=== PATIENT | male | born 1975 | race Caucasian/White ===

== ENCOUNTER 2017-08-26 09:00 | Emergency (ER) | payer OTHER ==
[2017-08-26 09:03] VITALS: BP 138/67; PULSE 78; RESP 18; TEMP 98.2
[2017-08-26] MEDS ORDERED: DIPH,PERTUS(ACELL)TETVAC-LF 0.5 ML VIAL IM ONE (09:05)
--- NOTE | 2017-08-26 09:33 | ED ---
General Adult HPI - General Chief complaint: Wound/Laceration Stated complaint: Head Injury Time Seen by Provider: 08/26/17 09:04 Source: police, RN notes reviewed Mode of arrival: ambulatory - History of Present Illness Initial comments: Patient 42-year-old male who presents emergency room today in the custody of police with a laceration to stop his forehead. He did put his head through a piece of glass causing this laceration. Patient states tetanus is not up-to- date. He denies his glans her symptoms. Patient denies any recent fever, chills , shortness of breath, chest pain, back pain, abdominal pain, nausea or vomiting , numbness or tingling, dysuria or hematuria, constipation or diarrhea, headaches or visual changes, or any other complaints. - Related Data Home Medications Medication Instructions Recorded Confirmed Aspirin 1,950 - 2,275 mg PO Q6H PRN 05/19/16 05/19/16 Multivitamin/Iron/Folic Acid 1 tab PO DAILY 05/19/16 05/19/16 [Centrum Complete Multivit Tab] Previous Rx's Medication Instructions Recorded HYDROcodone/APAP 5-325MG [[place] 5] 1 each PO Q4HR PRN #20 tab 05/19/16 Naproxen [Naprosyn] 500 mg PO Q12HR #24 tab 05/19/16 Sulfamethox-Tmp 800-160Mg [Bactrim 2 each PO Q12HR #40 tab 05/19/16 DS 800-160 mg] Allergies Allergy/AdvReac Type Severity Reaction Status Date / Time iodine Allergy Nausea & Verified 05/19/16 14:02 Vomiting seafood Allergy Unknown Uncoded 05/19/16 14:02 Review of Systems ROS Statement: Those systems with pertinent positive or pertinent negative responses have been documented in the HPI. ROS Other: All systems not noted in ROS Statement are negative. Past Medical History Past Medical History: No Reported History Additional Past Medical History / Comment(s): kidney stones History of Any Multi-Drug Resistant Organisms: MRSA Date of last positivie culture/infection: 05/19/16 MDRO Source:: left leg Past Surgical History: Hernia Repair Additional Past Surgical History / Comment(s): lithotripsy Past Psychological History: No Psychological Hx Reported Smoking Status: Current every day smoker Past Alcohol Use History: None Reported Past Drug Use History: None Reported General Exam - General Exam Comments Initial Comments: General: The patient is awake and alert, in no distress, and does not appear acutely ill. Eye: Pupils are equal, round and reactive to light, extra-ocular movements are intact. No nystagmus. There is normal conjunctiva bilaterally. No signs of icterus. Ears, nose, mouth and throat: There are moist mucous membranes and no oral lesions. Neck: The neck is supple, there is no tenderness or JVD. Neurological: A&O x 3. CN II-XII intact, There are no obvious motor or sensory deficits. Coordination appears grossly intact. Speech is normal. Skin: Patient does have a 1.5 cm linear laceration running horizontally to the forehead. Psychiatric: Cooperative, appropriate mood & affect, normal judgment. Course Vital Signs 08/26/17 09:01 Temperature 98.2 F Pulse Rate 78 Respiratory 18 Rate Blood Pressure 138/67 O2 Sat by Pulse 99 Oximetry Procedures - Procedures Initial comment: 1.5 cm linear laceration to The forehead. The skin was anesthetized with 1% lidocaine. The laceration was then cleansed with and irrigated with normal saline. The wound was inspected, and there was no evidence of injury to deep structures. No foreign body was noted in the wound. A total of 5 skin sutures were placed utilizing 5-0 nylon. Disposition Clinical Impression: Laceration Disposition: HOME SELF-CARE Condition: Good Instructions: Laceration (ED) Additional Instructions: Please return to the emergency room in 5 days to have sutures removed. Please watch for any signs of infection which may include increased pain, swelling, redness, fever or chills. Please return to emergency room for any signs of infection do occur. Please use clean soap and water over the area to prevent scabbing over your stitches. Please return to the emergency room for any other concerns. Referrals: None,Stated [Primary Care Provider] - 1-2 days Time of Disposition: 09:32
== END 2017-08-26 09:38 | disposition home or self-care (01) ==
LOC: EC 09:00
DX: S01.81XA Laceration without foreign body of other part of head, initial encounter (principal); F17.200 Nicotine dependence, unspecified, uncomplicated; Z86.14 Personal history of Methicillin resistant Staphylococcus aureus infection; Z79.899 Other long term (current) drug therapy; Z91.048 Other nonmedicinal substance allergy status; Z91.013 Allergy to seafood; Z23 Encounter for immunization; W25.XXXA Contact with sharp glass, initial encounter
CPT/HCPCS: 12011; 90471; 90715; 99283

== ENCOUNTER 2019-08-13 03:49 | Emergency (ER) | payer OTHER ==
[2019-08-13 03:56] VITALS: BP 120/72; PULSE 75; RESP 16; TEMP 97.4
[2019-08-13] MEDS ORDERED: SULFAMETH-TMP DS STARTER PACK 2 TAB BTL PO STA (04:09)
[2019-08-13] MEDS ORDERED: SULFAMETHOX-TMP 800-160MG 1 EACH TAB PO STA (04:09)
--- NOTE | 2019-08-13 04:10 | ED ---
General Adult HPI - General Chief complaint: ENT Stated complaint: Facial Lump Time Seen by Provider: 08/13/19 04:05 Source: patient, RN notes reviewed, old records reviewed Mode of arrival: ambulatory Limitations: no limitations - History of Present Illness Initial comments: 44-year-old male patient presents ED chief complaint of lump underneath jaw on right side of his mouth that has been causing discomfort for approximately 3 days. Reports that he is to stay methamphetamine user hardened clean for 6 months. Denies any IV drug use ever. It has any other complaints. Denies any pain in any other places. Denies cough congestion, nausea vomiting or diarrhea. Systemic: Pt denies fatigue, fever/chills, rash. Pt denies weakness, night sweats, weight loss. Neuro: Pt denies headache, visual disturbances, syncope or pre-syncope. HEENT: Pt denies ocular discharge or irritation, otalgia, rhinorrhea, pharyngitis . Cardiopulmonary: Pt denies chest pain, SOB, heart palpitations, dyspnea on exertion. Abdominal/GI: Pt denies abdominal pain, n/v/d. : Pt denies dysuria, burning w/ urination, frequency/urgency. Denies new onset urinary or bowel incontinence. MSK: Pt denies myalgia, loss of strength or function in extremities. Neuro: Pt denies new onset weakness, paresthesias. - Related Data Previous Rx's Medication Instructions Recorded Sulfamethox-Tmp 800-160Mg [Bactrim 1 tab PO Q12HR #20 tab 08/13/19 DS 800-160 mg] Allergies Allergy/AdvReac Type Severity Reaction Status Date / Time iodine Allergy Nausea & Verified 08/13/19 03:56 Vomiting seafood Allergy Unknown Uncoded 08/13/19 03:56 Review of Systems ROS Statement: Those systems with pertinent positive or pertinent negative responses have been documented in the HPI. ROS Other: All systems not noted in ROS Statement are negative. Past Medical History Past Medical History: No Reported History Additional Past Medical History / Comment(s): kidney stones History of Any Multi-Drug Resistant Organisms: MRSA Date of last positivie culture/infection: 05/19/16 MDRO Source:: left leg Past Surgical History: Hernia Repair Additional Past Surgical History / Comment(s): lithotripsy Past Psychological History: No Psychological Hx Reported Smoking Status: Current every day smoker Past Alcohol Use History: None Reported Past Drug Use History: Marijuana General Exam - General Exam Comments Initial Comments: Constitutional: NAD, AOX3, Pt has pleasant affect. HEENT: NC/AT, trachea midline, neck supple, tender submandibular right-sided lymphadenopathy noted. No erythema, no skin changes no fluctuance.. Posterior pharynx non erythematous, without exudates. External ears appear normal, without discharge. Mucous membranes moist. Eyes PERRLA, EOM intact. There is no scleral icterus. No pallor noted. Cardiopulmonary: RRR, no murmurs, rubs or gallops, no JVD noted. Lungs CTAB in anterior and posterior blanco. No peripheral edema. Abdominal exam: Abdomen soft and non-distended. Abdomen non-tender to palpation in all 4 quadrants. Bowel sounds active in LLQ. No hepatosplenomegaly. No ecchymosis Neuro: CN II-XII grossly intact. No nuchal rigidity. No raccon eyes, no srivastava sign, no hemotympanum. No cervical spinal tenderness. MSK: No posterior calf tenderness bilaterally, homans sign negative bilaterally. Posterior tibialis and radial pulse +2 bilaterally. Sensation intact in upper and lower extremities. Full active ROM in upper and lower extremities, 5/5 stregnth. Limitations: no limitations Course Vital Signs 08/13/19 03:53 Temperature 97.4 F L Pulse Rate 75 Respiratory 16 Rate Blood Pressure 120/72 O2 Sat by Pulse 99 Oximetry Medical Decision Making - Medical Decision Making 44-year-old male patient presents ED chief complaint of painful lump under her right jaw. Patient vital signs are stable, afebrile. Physical exam displayed tender similar viral lymphadenopathy. Patient be treated for lymphadenitis of Bactrim. Patient urged to follow up with primary care provider for further evaluation and exclusion of possible malignancy. Return to us discussed. Case discussed with Dr. Paige. Disposition Clinical Impression: Lymphadenitis, Lymphadenopathy Disposition: HOME SELF-CARE Condition: Stable Instructions (If sedation given, give patient instructions): Adenitis (ED) Additional Instructions: Take medication as directed. Follow up with primary care provider to rule out possibility of cancer. Return to ER if condition worsens. Prescriptions: Sulfamethox-Tmp 800-160Mg [Bactrim DS 800-160 mg] 1 tab PO Q12HR #20 tab Is patient prescribed a controlled substance at d/c from ED?: No Referrals: None,Stated [Primary Care Provider] - 1-2 days [facility] [NON-STAFF] - 1-2 days
[2019-08-13] MEDS ORDERED: ACETAMINOPHEN TAB 325 MG TAB PO STA (04:13)
== END 2019-08-13 04:23 | disposition home or self-care (01) ==
LOC: EC 03:49
DX: I88.9 Nonspecific lymphadenitis, unspecified (principal); F17.200 Nicotine dependence, unspecified, uncomplicated; Z91.048 Other nonmedicinal substance allergy status; Z91.013 Allergy to seafood
CPT/HCPCS: 99283

== ENCOUNTER 2020-01-04 04:21 | Inpatient (IN) | payer MEDICAID, OTHER ==
[2020-01-04 05:46] LABS: Appearance,Urine Clear (Clear); Bilirubin,Urine Negative (Negative); Blood,Urine Negative (Negative); Color,Urine Yellow; Glucose,Urine (UA) Negative (Negative); Ketones,Urine Negative (Negative); Leukocyte Esterase,Urine Negative (Negative); Nitrite,Urine Negative (Negative); PH, Urine 6.5 (5.0-8.0); Protein,Urine Negative (Negative); Specific Gravity,Urine 1.021 (1.001-1.035); Urobilinogen,Urine <2.0 mg/dL (<2.0)
[2020-01-04] MEDS ORDERED: ZIPRASIDONE 20 MG VIAL IM PRN (05:47)
[2020-01-04] MEDS ORDERED: LORazepam 1 MG TAB PO PRN (05:47)
[2020-01-04] MEDS ORDERED: ACETAMINOPHEN TAB 325 MG TAB PO PRN (05:47)
[2020-01-04] MEDS ORDERED: MAGNESIUM HYDROXIDE 2,400 MG/10 ML CUP PO PRN (05:47)
[2020-01-04 05:57] LABS: Amphetamine Screen,Urine Not Detected (NotDetected); Barbiturate Screen,Urine Not Detected (NotDetected); Benzodiazepines Screen,Urine Not Detected (NotDetected); Cocaine Screen,Urine Not Detected (NotDetected); Methadone Screen, Urine Not Detected (NotDetected); Opiate Screen,Urine Not Detected (NotDetected); Oxycodone Screen, Urine Not Detected (NotDetected); Phencyclidine Screen,Urine Not Detected (NotDetected); Tricyclic Antidepressant,Urine Not Detected (NotDetected); Urn Cannabinoid Scrn Detected (NotDetected)
--- NOTE | 2020-01-04 06:13 | ED ---
Psych HPI - General Chief Complaint: Psychiatric Symptoms Stated Complaint: Suicidal Ideation Time Seen by Provider: 01/04/20 04:23 Source: patient, EMS Mode of arrival: EMS Limitations: no limitations - History of Present Illness Initial Comments: This patient is a 44-year-old man who presents to be evaluated for worsening depression and suicidal ideation. The patient states that he has history of same but believes his symptoms were exacerbated by of a relative. The patient states he has not been on any medication for mood disorder. He does have a counselor through [facility] but has not seen her for over a week. MD Complaint: suicidal ideation, feels depressed Onset/Timin -: week(s) Associated Psychiatric Symptoms: depression, suicidal ideation History of same: Yes Quality: getting worse Improves With: none Worsens With: none Context: significant life stressor Associated Symptoms: denies other symptoms - Related Data Previous Rx's Medication Instructions Recorded Sulfamethox-Tmp 800-160Mg [Bactrim 1 tab PO Q12HR #20 tab 08/13/19 DS 800-160 mg] Allergies Allergy/AdvReac Type Severity Reaction Status Date / Time iodine Allergy Nausea & Verified 08/13/19 03:56 Vomiting seafood Allergy Unknown Uncoded 08/13/19 03:56 Review of Systems ROS Statement: Those systems with pertinent positive or pertinent negative responses have been documented in the HPI. ROS Other: All systems not noted in ROS Statement are negative. Constitutional: Denies: fever, chills Respiratory: Denies: cough, dyspnea Cardiovascular: Denies: chest pain, palpitations, syncope Gastrointestinal: Denies: abdominal pain, vomiting, diarrhea Musculoskeletal: Denies: back pain Skin: Denies: rash Neurological: Denies: headache, weakness Psychiatric: Reports: depression, suicidal thoughts. Denies: auditory hallucinations, visual hallucinations, homicidal thoughts Past Medical History Past Medical History: No Reported History Additional Past Medical History / Comment(s): kidney stones History of Any Multi-Drug Resistant Organisms: MRSA Date of last positivie culture/infection: 05/19/16 MDRO Source:: left leg Past Surgical History: Hernia Repair Additional Past Surgical History / Comment(s): lithotripsy Past Psychological History: No Psychological Hx Reported Smoking Status: Current every day smoker Past Alcohol Use History: None Reported Past Drug Use History: Marijuana General Exam General appearance: alert, in no apparent distress Head exam: Present: atraumatic, normocephalic Eye exam: Present: normal appearance. Absent: scleral icterus, conjunctival injection ENT exam: Present: normal oropharynx Respiratory exam: Present: normal lung sounds bilaterally. Absent: respiratory distress, wheezes, rales, rhonchi, stridor Cardiovascular Exam: Present: regular rate, normal rhythm, normal heart sounds. Absent: systolic murmur, diastolic murmur, rubs, gallop GI/Abdominal exam: Present: soft. Absent: distended, tenderness, guarding, rebound, rigid Neurological exam: Present: alert Psychiatric exam: Present: depressed, suicidal ideation. Absent: agitated, anxious, flat affect, manic, homicidal ideation Skin exam: Present: warm, dry, intact, normal color. Absent: rash Course Vital Signs 01/04/20 01/04/20 04:26 05:55 Temperature 97.9 F 97.9 F Pulse Rate 90 87 Respiratory 18 16 Rate Blood Pressure 125/85 115/56 O2 Sat by Pulse 97 98 Oximetry Medical Decision Making - Lab Data Lab Results 01/04/20 Range/Units 05:00 Urine Color Yellow Urine Appearance Clear (Clear) Urine pH 6.5 (5.0-8.0) Ur Specific [place] 1.021 (1.001-1.035) Urine Protein Negative (Negative) Urine Glucose (UA) Negative (Negative) Urine Ketones Negative (Negative) Urine Blood Negative (Negative) Urine Nitrite Negative (Negative) Urine Bilirubin Negative (Negative) Urine Urobilinogen <2.0 (<2.0) mg/dL Ur Leukocyte Esterase Negative (Negative) Urine Opiates Screen Not Detected (NotDetected) Ur Oxycodone Screen Not Detected (NotDetected) Urine Methadone Screen Not Detected (NotDetected) Ur Propoxyphene Screen Not Detected (NotDetected) Ur Barbiturates Screen Not Detected (NotDetected) U Tricyclic Antidepress Not Detected (NotDetected) Ur Phencyclidine Scrn Not Detected (NotDetected) Ur Amphetamines Screen Not Detected (NotDetected) U Methamphetamines Scrn Not Detected (NotDetected) U Benzodiazepines Scrn Not Detected (NotDetected) Urine Cocaine Screen Not Detected (NotDetected) U Marijuana (THC) Screen Detected H (NotDetected) Disposition Clinical Impression: Mood disorder, Suicidal ideation Disposition: ADMITTED IP TO THIS HOSP Condition: Fair Is patient prescribed a controlled substance at d/c from ED?: No
[2020-01-04] MEDS: NICOTINE 14MG/24HR PATCH TRANSDERM SCH (08:34)
[2020-01-04 09:43] LABS: ALT 38 U/L (4-49); AST 31 U/L (17-59); African American GFR (CKD) >90 (>60 ml/min/1.73 sqM); Albumin 3.8 g/dL (3.5-5.0); Alkaline Phosphatase 87 U/L (38-126); Anion Gap 5 mmol/L; Bilirubin,Unconjugated 0.4 mg/dL (0.0-1.1); Blood Urea Nitrogen 20 mg/dL (9-20); Calcium 9.2 mg/dL (8.4-10.2); Carbon Dioxide 26 mmol/L (22-30); Chloride 105 mmol/L (98-107); Cholesterol 218 mg/dL (<200); Glucose 97 mg/dL (74-99); HDL Cholesterol 63 mg/dL (40-60); LDL Cholesterol,Calculated 90 mg/dL (0-99); Non-African American GFR(CKD) >90 (>60 ml/min/1.73 sqM); Potassium 4.7 mmol/L (3.5-5.1); Sodium 136 mmol/L (137-145); Total Bilirubin 0.2 mg/dL (0.2-1.3); Total Protein 6.5 g/dL (6.3-8.2); Triglycerides 325 mg/dL (<150)
[2020-01-04 09:45] LABS: Basophils # (A) 0.1 k/uL (0-0.2); Basophils % (A) 1 %; Eosinophils # (A) 0.2 k/uL (0-0.7); Eosinophils % (A) 1 %; HCT 40.7 % (39.0-53.0); HGB 13.6 gm/dL (13.0-17.5); Lymphocytes # (A) 2.3 k/uL (1.0-4.8); Lymphocytes % (A) 12 %; MCH 31.2 pg (25.0-35.0); MCHC 33.5 g/dL (31.0-37.0); MCV 93.3 fL (80.0-100.0); Mean Platelet Volume 6.5; Monocytes # (A) 0.7 k/uL (0-1.0); Monocytes % (A) 4 %; Neutrophils % (A) 81 %; Platelet Count 391 k/uL (150-450); RBC 4.36 m/uL (4.30-5.90); RDW 12.7 % (11.5-15.5); WBC 18.6 k/uL (3.8-10.6)
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
--- NOTE | 2020-01-04 12:36 | P.CONS ---
History of Present Illness - Reason for Consult Leukocytosis, medical clearance - History of Present Illness 4-year-old male admitted the psychiatric floor for major depression. Patient denied any fever chills nausea vomiting abdominal pain cough. Patient does have leukocytosis patient denied any dysuria urine and extreme is positive for marijuana. Patient had history of methamphetamine, will order hepatitis hepatitis panel. Review of Systems REVIEW OF SYSTEMS: CONSTITUTIONAL: No fever, no malaise, no fatigue. HEENT: No recent visual problems or hearing problems. Denied any sore throat. CARDIOVASCULAR: No chest pain, orthopnea, PND, no palpitations, no syncope. PULMONARY: No shortness of breath, no cough, no hemoptysis. GASTROINTESTINAL: No diarrhea, no nausea, no vomiting, no abdominal pain. NEUROLOGICAL: No headaches, no weakness, no numbness. HEMATOLOGICAL: Denies any bleeding or petechiae. GENITOURINARY: Denies any burning micturition, frequency, or urgency. MUSCULOSKELETAL/RHEUMATOLOGICAL: Denies any joint pain, swelling, or any muscle pain. ENDOCRINE: Denies any polyuria or polydipsia. The rest of the 14-point review of systems is negative. Past Medical History Past Medical History: No Reported History Additional Past Medical History / Comment(s): kidney stones History of Any Multi-Drug Resistant Organisms: MRSA Year Discovered:: 05/19/16 MDRO Source:: left leg Past Surgical History: Hernia Repair Additional Past Surgical History / Comment(s): lithotripsy Past Anesthesia/Blood Transfusion Reactions: No Reported Reaction Smoking Status: Current every day smoker Medications and Allergies Home Medications Medication Instructions Recorded Confirmed Type No Known Home Medications 01/04/20 01/04/20 History Allergies Allergy/AdvReac Type Severity Reaction Status Date / Time iodine Allergy Nausea & Verified 01/04/20 06:57 Vomiting seafood Allergy Unknown Uncoded 01/04/20 06:57 Physical Exam Vitals: Vital Signs Temp Pulse Pulse Resp BP BP Pulse Ox 01/04/20 06:25 97.7 F 86 18 116/74 97 01/04/20 05:55 97.9 F 87 16 115/56 98 01/04/20 04:26 97.9 F 90 18 125/85 97 Intake and Output 01/03/20 01/04/20 01/04/20 22:59 06:59 14:59 Other: Weight 57.7 kg PHYSICAL EXAMINATION: GENERAL: The patient is alert and oriented x3, not in any acute distress. Well developed, well nourished. HEENT: Pupils are round and equally reacting to light. EOMI. No scleral icterus. No conjunctival pallor. Normocephalic, atraumatic. No pharyngeal erythema. No thyromegaly. CARDIOVASCULAR: S1 and S2 present. No murmurs, rubs, or gallops. PULMONARY: Chest is clear to auscultation, no wheezing or crackles. ABDOMEN: Soft, nontender, nondistended, normoactive bowel sounds. No palpable organomegaly. MUSCULOSKELETAL: No joint swelling or deformity. EXTREMITIES: No cyanosis, clubbing, or pedal edema. NEUROLOGICAL: Gross neurological examination did not reveal any focal deficits. SKIN: No rashes. Results CBC & Chem 7: 01/04/20 09:12 01/04/20 09:12 Labs: Abnormal Lab Results - Last 24 Hours (Table) 01/04/20 01/04/20 01/04/20 Range/Units 05:00 09:12 09:12 WBC 18.6 H (3.8-10.6) k/uL Neutrophils # 15.0 H (1.3-7.7) k/uL Sodium 136 L (137-145) mmol/L Triglycerides 325 H (<150) mg/dL Cholesterol 218 H (<200) mg/dL HDL Cholesterol 63 H (40-60) mg/dL U Marijuana (THC) Screen Detected H (NotDetected) Assessment and Plan Plan: -Leukocytosis reactive no evidence of infection of the testing is necessary at this time -Rule out hepatitis C the patient had a history of methamphetamine and heroin no use in the past -Depression management as per primary service -Marijuana use: Counseling was provided nicotine abuse: Counseling was provided
[2020-01-04 16:59] LABS: Hemoglobin A1C 5.3 % (4.0-6.0)
[2020-01-04 19:24] LABS: Hepatitis A Antibody IgM Non-Reactive (Non-Reactive); Hepatitis B Core IgM Non-Reactive (Non-Reactive); Hepatitis B Surface Antigen Non-Reactive (Non-Reactive); Hepatitis C IgG Antibody Non-Reactive (Non-Reactive)
[2020-01-04] MEDS: PARoxetine 20 MG TAB PO SCH (20:41)
[2020-01-05] MEDS: NICOTINE 14MG/24HR PATCH TRANSDERM SCH (08:16)
--- NOTE | 2020-01-05 09:38 | P.PN ---
Progress Note - Text Interval history: The patient is found in his room he follows me to an interview room. He indicates his mood is about the same. He continues to feel sad due to the loss of his grandfather. He states that he may be billed a contact his sister today for additional support. He states that he talked to her about 2 weeks ago. He is concerned as to whether not he can return back to his grandfather's home. States his father told him he couldn't but his belief is that his grandfather left the house to him. He states that he needs to get a hold of his grandfather's civil rights attorney to verify. He believes his grandfather did have a will. The patient states that he did eat lunch and dinner yesterday he did shower. He states he is experiencing some sweating since starting the Paxil. He states that that occurred when he initiated years ago he does not wish to change the Paxil at this time. He indicates having some difficulty sleeping but staff report he slept 7 hours. Mental status exam: The patient's a short statured male appearing his stated age. He is dressed in his own clothing. Eye contact is intermittent. Speech is fluent. He demonstrates no spontaneous speech but responds to questions. He reports a depressed and hopeless mood. He presented with suicidal ideation but states he feels safe in the hospital. He reports no homicidal ideation intent or plan he reports no auditory or visual hallucinations or any specific delusions. He demonstrates no tangential thinking loose associations or flight of ideas. He demonstrated no rocking behavior as he was seated in the chair. He demonstrates no verbal or physical aggressiveness he demonstrates no involuntary repetitive movements. Insight and judgment limited. Plan: The patient will continue on the Paxil as written melatonin is written as needed for insomnia. We will monitor him for safety and encourage full participation in the milieu. He is encouraged to contact his sister. He is encouraged to explore placement options if he is unable to return to his grandfather's home. We will monitor him for safety he requires continued psychiatric hospitalization at this time for acute safety reasons.
[2020-01-05] MEDS: PARoxetine 20 MG TAB PO SCH (20:46)
[2020-01-05] MEDS: MELATONIN 3 MG TABLET PO PRN (20:47)
[2020-01-06] MEDS: NICOTINE 14MG/24HR PATCH TRANSDERM SCH ×2 (08:47→08:49)
--- NOTE | 2020-01-06 12:15 | P.PN ---
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 He would not get out of bed for the interview. He complained of feeling tired and "fatigued". He described continued feelings of hopelessness, helplessness as well as suicidal ideation and wishes. He denied suicidal intent or plan. He denied experiencing auditory, visual or olfactory hallucinations, ideas reference, thought insertion etc. He is sleeping 7 hours per night and attendance most therapeutic groups and activities yesterday (but not today). Objective - Vital Signs Vital signs: Vital Signs Temp 98.6 F 01/06/20 06:12 Pulse 69 01/06/20 06:12 Resp 14 01/06/20 06:12 BP 109/68 01/06/20 06:12 Pulse Ox 99 01/04/20 18:40 - Exam He presented as a thin sedated appearing 44-year-old male who was guarded. He made eye contact and appeared to attend to the interview. He volunteered little information. He showed psychomotor retardation but no abnormal movements. Her speech was spontaneous with decreased rate, rhythm and volume. He had no articulation difficulties. His affect was depressed and not reactive. He describes suicidal ideation or wishes. He denied homicidal ideation. He expressed feelings of hopelessness and helplessness. He did not express ideas reference, paranoid ideation or delusions. Her thinking was concrete but his associations were coherent and logical. He denied hallucinations did not appear to be responding to internal stimuli. - Labs CBC & Chem 7: 01/04/20 09:12 01/04/20 09:12 Assessment and Plan Assessment: He is moderately mentally ill and unchanged from admission. He continues to describe symptoms of a depressive disorder as well as suicidal thoughts and wishes. Plan: Continue inpatient hospitalization due to severity of his depressive symptoms and suicidal ideation. Continue Paxil 20 mg at bedtime, Ativan 1 mg by mouth 3 times a day and melatonin 6 mg at bedtime when necessary. Encourage participation in therapeutic groups and activities. Evaluate clinical status response to treatment daily basis.
[2020-01-06] MEDS: PARoxetine 20 MG TAB PO SCH (20:19)
[2020-01-06] MEDS: MELATONIN 3 MG TABLET PO PRN (20:19)
[2020-01-07] MEDS: NICOTINE 14MG/24HR PATCH TRANSDERM SCH (08:32)
[2020-01-07] MEDS: QUEtiapine 50 MG TAB PO SCH ×2 (12:32→20:38)
--- NOTE | 2020-01-07 13:30 | P.PN ---
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 He was acutely distressed, tearful and restless. He talked about missing his grandfather and wishing that he could join his grandfather. He feels abandoned by his family and feels he has no future. He repeatedly expressed concern that if he were discharged that he would relapse to methamphetamine. Objective - Vital Signs Vital signs: Vital Signs Temp 97.7 F 01/07/20 06:14 Pulse 62 01/07/20 06:14 Resp 14 01/07/20 06:14 BP 106/69 01/07/20 06:14 Pulse Ox 99 01/04/20 18:40 - Exam He presented as a thin short statured 44-year-old male who was acutely distressed, tearful and rocking back and forth in the chair. He cried throughout the interview. He had a distressed facial expression. His speech was spontaneous with normal rate and rhythm. His affect was depressed, tense. He expressed wishes but denied specific suicidal ideation. Expressed feelings of hopelessness, helplessness and worthlessness. He ruminated about his grandfather in their relationship. He did not express ideas reference, paranoid ideation or delusions. His thinking was concrete but his associations were coherent and logical. He denied hallucinations and did not appear to be responding to internal stimuli. - Labs CBC & Chem 7: 01/04/20 09:12 01/04/20 09:12 Assessment and Plan Assessment: He is markedly distressed, depressed and having suicidal ideation and wishes.. Plan: Continue inpatient hospitalization due to severity of his depressive symptoms and suicidal ideation. Continue safety precautions. Begin Seroquel 50 mg by mouth twice a day and titrated according to clinical response and tolerance. Continue Paxil 20 mg at bedtime, Ativan 1 mg by mouth 3 times a day and melatonin 6 mg at bedtime when necessary. Encourage participation in therapeutic groups and activities. Evaluate clinical status response to treatment daily basis.
[2020-01-07] MEDS: PARoxetine 20 MG TAB PO SCH (20:38)
[2020-01-08] MEDS: QUEtiapine 50 MG TAB PO SCH ×2 (08:23→20:26)
[2020-01-08] MEDS: NICOTINE 14MG/24HR PATCH TRANSDERM SCH (08:23)
--- NOTE | 2020-01-08 10:49 | P.PN ---
Progress Note - Text Interval history: The patient is found in his room he follows me to an interview room. He indicates that his mood continues to be sad. He continues to endorse episodes of tearfulness. He states his mood continues to be predominantly sad due to grief related to the loss of his grandfather. He states he is trying to imagine what his life will be like again. He did try calling his sister with no return call. He states his appetite has been impaired and he has been intermittently eating. He did sleep last night staff reportedly slept 7 hours. Over the weekend Dr. Mendez started him on Seroquel 50 mg twice daily. The patient states that this does have a calming effect he is reporting no side effects with his medication. Mental status exam: The patient is alert he is a disheveled appearance he is dressed in his own clothing eye contact is intermittent. He reports a depressed mood with hopelessness thoughts. He is tearful during the session. He demonstrates rocking behavior in his chair briefly. He reports being able to keep himself safe here in the hospital he is reporting no homicidal ideation. He describes no auditory or visual hallucinations or any specific delusions. There is no observed evidence of psychosis. He demonstrates no tangential thinking loose associations or flight of ideas. Affect is dysphoric overall. He is cooperative he is easily directed. Insight and judgment limited. Plan: The patient will continue on the Paxil and Seroquel as written. Staff report that he is attending groups. He is encouraged to continue participating in the milieu. We will monitor him for safety and encourage his continued efforts to reach out to family. He requires continued psychiatric hospitali zation. Vital signs reviewed.
[2020-01-08] MEDS: PARoxetine 20 MG TAB PO SCH (20:26)
[2020-01-09] MEDS: NICOTINE 14MG/24HR PATCH TRANSDERM SCH (07:59)
[2020-01-09] MEDS: QUEtiapine 50 MG TAB PO SCH ×2 (07:59→20:26)
--- NOTE | 2020-01-09 10:16 | P.PN ---
Progress Note - Text Interval history: The patient is found in his room he follows me to an interview room. He indicates his mood is mildly improved. He states that he is trying to get his thoughts straightened out. He reports no suicidal thoughts since yesterday morning. He states he does still have some hopelessness thinking however. He has been attending groups. He finds those supportive. He continues to reach out to family with no return calls he states. Appetite remains low. He describes some toothache pain from a previously problematic to [facility]. He reports that he slept last night staff report he slept 5 hours. He has no questions or concerns regarding his medications. Mental status exam: The patient is a shorter statured male he presents with a disheveled appearance hygiene is adequate. He is dressed in his own clothing. Eye contact is intermittent. He reports a depressed mood with hopelessness thinking. He indicates that he hasn't had any suicidal ideation since yesterday morning. No homicidal ideation intent or plan. He reports no auditory or visual hallucinations or any specific delusions. He demonstrates no evidence of psychosis. He demonstrates no tangential thinking loose associations or flight of ideas he does not appear hypomanic or manic. Insight and judgment limited. He is oriented to person place and date. He demonstrates no verbal or physical aggressiveness. He demonstrates no involuntary repetitive movements. He demonstrates no rocking behavior in the chair today. Plan: The patient will continue on his current psychotropic medications. He is encouraged to continue participating in the milieu. We will monitor him for safety. Vital signs reviewed. He requires continued inpatient psychiatric care. There appears to be some mild improvement compared to when he was admitted. I anticipate he may be appropriate for discharge towards the end of the week.
[2020-01-09] MEDS: IBUPROFEN 400 MG TAB PO PRN ×2 (13:00→21:34)
[2020-01-09] MEDS: PARoxetine 20 MG TAB PO SCH (20:26)
[2020-01-10] MEDS: NICOTINE 14MG/24HR PATCH TRANSDERM SCH (08:23)
[2020-01-10] MEDS: QUEtiapine 50 MG TAB PO SCH ×2 (08:24→20:21)
--- NOTE | 2020-01-10 10:48 | P.PN ---
Progress Note - Text Interval history: The patient is found in his room he indicates he has a headache and does not wish to follow me to an interview room. He states that he did sleep last night staff recorded he slept 7 hours. Appetite is improved he reports that he did eat lunch and dinner yesterday. He has not attended groups this morning due to his complaint of headache. He did attend most groups yesterday. He indicates that his mood is improving he is feeling less sad. He reports no suicidal ideation today. He continues to be unable to reach any family members. He indicates his plan is to return to his grandfather's home. He is willing to follow up with [facility] upon discharge. He has no questions or concerns regarding his medication. Mental status exam: The patient is alert he is lying in bed eye contact is appropriate. He is pleasant cooperative. Hygiene is adequate speech is fluent spontaneous nonpressured. He demonstrates no tangential thinking loose associations or flight of ideas. He is reporting no suicidal ideation intent or plan reporting no homicidal ideation intent or plan. He is endorsing no au ditory or visual hallucinations or any specific delusions. Insight and judgment slowly improving. Cognitively he is oriented to person place and date. He maintains a constricted affect. He does describe some future oriented thinking in terms of wanting to obtain employment. He states he did place a call to his former employer. Plan: The patient will continue on his current psychotropic medication. He may be appropriate for discharge in the next 1-2 days. We will monitor him for safety he is encouraged to continue participating in the milieu. Vital signs reviewed. He is encouraged to continue reaching out any potential a supportive family members..
[2020-01-10] MEDS: PARoxetine 20 MG TAB PO SCH (20:21)
[2020-01-10] MEDS: MAG HYDROX/AL HYDROX/SIMETH 30 ML CUP PO PRN (23:22)
[2020-01-11] MEDS: QUEtiapine 50 MG TAB PO SCH ×2 (08:03→20:18)
[2020-01-11] MEDS: NICOTINE 14MG/24HR PATCH TRANSDERM SCH (08:03)
[2020-01-11 10:49] VITALS: BMI 21.8
--- NOTE | 2020-01-11 11:01 | P.PN ---
Progress Note - Text Interval history: The patient is found in his room he follows me to an interview room. He indicates that his mood is not good he states that he cannot expect himself to go home and keep himself safe. He indicates that he has been having suicidal thoughts for the past 2 days even though he was not describing that to me during our sessions. We discussed the importance of him being truthful and our sessions. He has been attending groups. He indicates his headache and toothache are improved. He continues to be unable to contact any family members. It's he will try to contact his father again today. Mental status exam: The patient is a shorter statured male he is dressed in his own clothing his shirt is oversize he has a disheveled appearance eye contact is intermittent he demonstrates the same rocking behavior as he seated in his chair. He indicates his mood is not good he reports having suicidal thoughts and feels incapable of keeping himself safe outside of the hospital. He is reporting no homicidal ideation intent or plan he reports no auditory or visual hallucinations or specific delusions. There is no observed evidence of psychosis. He demonstrates no tangential thinking loose associations or flight of ideas he does not appear hypomanic or manic. Affect is dysphoric in nature. Insight and judgment limited. Plan: The patient will continue on his current psychotropic medications. We will allow him more time to stabilize prior to discharge. He is encouraged to participate in the milieu. He will continue making efforts to contact any supportive family member. He requires continued psychiatric hospitalization due to acute safety risks due to suicidal ideation.
[2020-01-11] MEDS: PARoxetine 20 MG TAB PO SCH (20:18)
[2020-01-12] MEDS: NICOTINE 14MG/24HR PATCH TRANSDERM SCH (08:02)
[2020-01-12] MEDS: QUEtiapine 50 MG TAB PO SCH ×2 (08:02→20:19)
--- NOTE | 2020-01-12 10:23 | P.PN ---
Progress Note - Text Interval history: The patient is found in his room he follows me to an interview room. He indicates that he was able to reach his sister and father yesterday via phone. He states there continues to be some contention with his father as his father wants to sell the grandfather's house so the money can be split amongst the patient's father and his siblings. The patient states he was able to speak with his sister who has invited him to stay in her basement upon discharge on Wednesday. The patient states that he has some reason now to be hopeful. He does continue to have some hopelessness thinking and continues to struggle with feelings of grief. He indicates that he attended most groups yesterday. He has no questions or concerns regarding medication. He typically does not eat breakfast but has been eating other meals. Mental status exam: The patient's a shorter statured male he has a disheveled appearance hygiene and adequate he is dressed in oversize clothing. Eye contact is intermittent. He is pleasant easily directed he maintains a bland affect. He reports continued feelings of sadness some hopelessness thinking he reports he is able to keep himself safe in the hospital. He feels unsure that he could keep himself safe at home currently. He is reporting no thoughts of harming others. He is reporting no auditory or visual hallucinations or any specific delusions. He demonstrates no verbal or physical aggressiveness he demonstrates no involuntary repetitive movements. Insight and judgment slowly improving. Plan: The patient will continue on his current medications. We will monitor him for safety he is encouraged to participate fully in the milieu. If he demonstrates sufficient improvement he will be discharged Wednesday to his sister's home. Vital signs reviewed. He requires continued psychiatric hospitalization for further stabilization of his acute mood symptoms.
[2020-01-12] MEDS: PARoxetine 20 MG TAB PO SCH (20:19)
[2020-01-12] MEDS: MAG HYDROX/AL HYDROX/SIMETH 30 ML CUP PO PRN (23:31)
[2020-01-13] MEDS: NICOTINE 14MG/24HR PATCH TRANSDERM SCH (08:10)
[2020-01-13] MEDS: QUEtiapine 50 MG TAB PO SCH ×2 (08:10→20:49)
--- NOTE | 2020-01-13 13:09 | P.PN ---
Progress Note - Text Progress Note Date: 01/13/20 Interval history: Patient is seen in cross coverage today. He reports that his mood overall is doing better. He seems to be eating well. He does not verbalize any adverse psychotropic medication side effects. He does talk about discharge planning for Wednesday, relays he will be living with his sister. He does feel like he'll be ready for discharge Wednesday. Mental status exam: He is alert and cooperative with the interview. Her speech is fluent, not rapid or pressured. Thought processes are organized. His mood is reported as improved. He does not verbalize any thoughts of harm to self or others. No evidence of psychosis or agitation. Plan: Patient be maintained on current psychotropic medication regimen. Continue to monitor regarding any medication side effects and monitor his ongoing response to treatment.
[2020-01-13] MEDS: MAG HYDROX/AL HYDROX/SIMETH 30 ML CUP PO PRN (19:09)
[2020-01-13] MEDS: PARoxetine 20 MG TAB PO SCH (20:49)
[2020-01-14 06:41] VITALS: RESP 16
[2020-01-14] MEDS: QUEtiapine 50 MG TAB PO SCH (08:07)
[2020-01-14] MEDS: NICOTINE 14MG/24HR PATCH TRANSDERM SCH (08:20)
--- NOTE | 2020-01-14 15:07 | P.PN ---
Progress Note - Text Progress Note Date: 01/14/20 Interval history: Patient is seen in cross coverage again today. He reports that he didn't sleep well last night, relays that he was seeing a man in his room with a white suit. He states that this is something that has seen for a long time. He states that this causes him quite a bit of anxiety and makes him not want to go in his room. Mental status exam: He is alert and cooperative with the interview. He describes increased anxiety, relays that he saw of management a white suit in his room last night and also saw him earlier today. He has not verbalize any thoughts of harm to self or others. He describes his mood is anxious. Plan: We'll adjust Seroquel to 50 mg in a.m. and 100 mg at bedtime to help with symptoms of psychosis and accompanying anxiety. Continue to monitor any medication side effects and monitor his ongoing response to treatment.
[2020-01-14] MEDS: PARoxetine 20 MG TAB PO SCH (20:11)
[2020-01-14] MEDS ORDERED: QUEtiapine 100 MG TAB PO SCH (21:00)
[2020-01-14] MEDS: MAG HYDROX/AL HYDROX/SIMETH 30 ML CUP PO PRN (22:12)
[2020-01-15 06:30] VITALS: BP 129/78; PULSE 66; TEMP 97.9
[2020-01-15] MEDS: NICOTINE 14MG/24HR PATCH TRANSDERM SCH (08:19)
[2020-01-15] MEDS ORDERED: QUEtiapine 50 MG TAB PO SCH (09:00)
--- NOTE | 2020-01-15 10:48 | P.DS ---
Providers Date of admission: 01/04/20 05:44 Expected date of discharge: 01/15/20 Attending physician: Aleks De La Cruz Consults: 01/04/20 05:47 Consult Physician Routine Consulting Provider: Kodi Cristina Consult Reason/Comments: medical H and P Do you want consulting provider notified?: Yes, Notify in am Primary care physician: Daisy Quintana - Discharge Diagnosis(es) (1) Major depressive disorder, recurrent severe without psychotic features Current Visit: Yes Status: Acute Priority: High (2) Methamphetamine use disorder, severe, in sustained remission Current Visit: Yes Status: Acute Priority: Low (3) Opioid use disorder, severe, in sustained remission Current Visit: Yes Status: Acute Priority: Low (4) Cannabis use disorder, moderate, dependence Current Visit: Yes Status: Acute Priority: Medium (5) Generalized anxiety disorder Current Visit: Yes Status: Acute Priority: Medium Hospital Course: Brief summary admission note: This patient is a 44-year-old single male who was admitted to the mental health unit through the emergency room for acute suicidal ideation. The patient states that his grandfather had just recently . The patient had been residing with him for the last 2 years and was his main source of support emotionally and financially. The patient experienced acute symptoms of grief he reported he could live anymore and he wanted to join his grandfather. He had thoughts of overdosing on heroin. He indicated he had been clean from methamphetamine and heroin for 2 years. He described regular tearfulness poor appetite and feeling hopeless. For full details please refer to my psychiatric evaluation dated 01/04/2020. Summary of hospital course: The patient was restarted on Paxil 20 mg at bedtime during the course of the hospitalization Dr. Mendez provided coverage and added Seroquel 50 mg twice daily. Just recently Dr. Gusman titrated the evening dose to 100 mg at bedtime. The patient reported no side effects from the medication. He selectively attended groups he demonstrated no agitated behavior. During the course of admission he reported progressive improvement of symptoms. He was seen by internal medicine for routine history and physical exam. Social work met with the patient to complete a psychosocial assessment. After several attempts he was able to contact his sister via phone. He indicates that he is able to stay with her upon discharge. He indicates he gets along with his sister and her . He demonstrates future oriented thinking he states that he is considering job opportunities. He indicates that he feels safe leaving the hospital and feels comfortable staying with family members as i ndicated. Mental status exam: The patient is an alert male he is dressed in his own clothing hygiene grooming adequate. Eye contact is appropriate speech is fluent spontaneous nonpressured. He maintains a constricted affect. He reports no hopelessness thinking he reports no suicidal ideation intent or plan. He reports no auditory or visual hallucinations or any specific delusions. There is no observed evidence of psychosis. He demonstrates no verbal or physical aggressiveness he demonstrates no involuntary repetitive movements. Insight and judgment have improved. As noted above he spontaneously describes future oriented thinking. He is looking forward to finding a job he is looking forward to spending time with his 2 nephews as he describes activities they have participated in, in the past he demonstrates no tangential thinking loose associations or flight of ideas. He does not appear hypomanic or manic. Impressions 1. Major depressive disorder recurrent severe without psychosis, rule out intellectual disability, generalized anxiety disorder, methamphetamine use disorder in full sustained remission, opioid use disorder in full sustained remission, cannabis use disorder moderate Plan: The patient will be discharged mental health unit today he plans on residing with his sister in her home. Social work will arrange outpatient mental health follow-up. He will continue on Paxil 20 mg at bedtime Seroquel 50 mg daily and 100 mg at bedtime. He is instructed to abstain from any use of alcohol marijuana or any illicit drugs. There is no need for inpatient chemical dependency treatment at this time. He does not require any medication specifically for substance use at this time. At this time there is no imminent safety risk he is appropriate for transition to outpatient care. He is instructed to return to the hospital with any acute safety concerns. Patient Condition at Discharge: Stable Plan - Discharge Summary Discharge Rx Participant: No New Discharge Prescriptions: New Nicotine 14Mg/24Hr Patch [Habitrol] 1 patch TRANSDERM DAILY #14 patch PARoxetine [Paxil] 20 mg PO HS #30 tab QUEtiapine [SEROquel] 50 mg PO DAILY #30 tab QUEtiapine [SEROquel] 100 mg PO HS #30 tab Discharge Medication List Nicotine 14Mg/24Hr Patch [Habitrol] 1 patch TRANSDERM DAILY #14 patch 01/15/20 [Rx] PARoxetine [Paxil] 20 mg PO HS #30 tab 01/15/20 [Rx] QUEtiapine [SEROquel] 50 mg PO DAILY #30 tab 01/15/20 [Rx] QUEtiapine [SEROquel] 100 mg PO HS #30 tab 01/15/20 [Rx] Follow up Appointment(s)/Referral(s): [facility] [Outside] - 01/16/20 12:00 pm (w/Ernestina by phone. Please call [facility] [address] to confirm your phone number upon dc.) Mariano Villa MD [Primary Care Provider] - 1 Week Activity/Diet/Wound Care/Special Instructions: Activity and diet as tolerated. Avoid the use of street drugs and alcohol. Take all medications as prescribed. When you are in need of refills on your medications please contact your medical provider and/or outpatient psychiatrist to have this done. Please go to scheduled outpatient appointment for aftercare treatment. If symptoms return or become worse, call the crisis line at and/or go to the nearest emergency room for evaluation.
== END 2020-01-15 13:15 | disposition home or self-care (01) | DRG 885 ==
LOC: EC 04:21 → 3MHU 05:44
PROVIDERS: ADMIT Psychiatry & Neurology Psychiatry; ATTEND Psychiatry & Neurology Psychiatry
DX: F33.2 Major depressive disorder, recurrent severe without psychotic features (principal); R45.851 Suicidal ideations; D72.829 Elevated white blood cell count, unspecified; F11.21 Opioid dependence, in remission; F15.21 Other stimulant dependence, in remission; Z71.6 Tobacco abuse counseling; F17.210 Nicotine dependence, cigarettes, uncomplicated; Z71.51 Drug abuse counseling and surveillance of drug abuser; F12.10 Cannabis abuse, uncomplicated; F41.1 Generalized anxiety disorder; K08.89 Other specified disorders of teeth and supporting structures; Z65.3 Problems related to other legal circumstances; Z79.899 Other long term (current) drug therapy; Z87.442 Personal history of urinary calculi; Z91.5 Personal history of self-harm; Z86.14 Personal history of Methicillin resistant Staphylococcus aureus infection; Z88.8 Allergy status to other drugs, medicaments and biological substances; Z91.013 Allergy to seafood
CPT/HCPCS: 80053; 80061; 80074; 80306; 81003; 82075; 82248; 83036; 84443; 85025; 99285

== ENCOUNTER → 2020-06-05 | Outpatient (CLI) | payer OTHER ==
[2020-06-05 18:58] LABS: African American GFR (CKD) 105.6 (60.0-200.0); Chol/HDL Ratio 4.93; LDL Cholesterol,Calculated 150.4 mg/dL (0.0-131.0); Lithium 0.4 mmol/L (0.5-1.2); Non-African American GFR(CKD) 91.1 (60.0-200.0); T4, Free (Free Thyroxine) 0.8 ng/dL (0.80-1.80); VLDL Calculation 22.6 mg/dL (5.00-40.00)
[2020-06-05 22:18] LABS: Hemoglobin A1C 5.3 % (4.0-6.0)
== END | disposition home or self-care (01) ==
LOC: LABWHC1 11:57
PROVIDERS: ATTEND Psychiatry & Neurology Psychiatry
DX: Z51.81 Encounter for therapeutic drug level monitoring (principal); Z79.899 Other long term (current) drug therapy
CPT/HCPCS: 36415; 80061; 80178; 82565; 82947; 83036; 84439; 84443; 84520

== ENCOUNTER 2020-08-14 17:33 | Emergency (ER) | payer OTHER ==
[2020-08-14 17:52] VITALS: TEMP 98
[2020-08-14] MEDS ORDERED: DIPH,PERTUS(ACELL)TETVAC-LF 0.5 ML VIAL IM ONE (18:20)
[2020-08-14] MEDS ORDERED: BACITRACIN OINT 1 EACH PACKET TOPICAL ONE (18:20)
--- NOTE | 2020-08-14 18:26 | ED ---
Upper Extremity HPI - General Chief Complaint: Extremity Injury, Upper Stated Complaint: FINGER INJURY Time Seen by Provider: 08/14/20 18:03 Source: patient Mode of arrival: ambulatory Limitations: no limitations - History of Present Illness Initial Comments: Patient is a 45-year-old male presenting to emergency Department with complaints of a cut to his third digit on the right hand. Patient states he cut his finger on some metal at work. He states he has not had a tetanus shot in many years and is requesting one today. Patient is not on blood thinners, the bleeding is controlled with a bandage. He has no further complaints at this time. - Related Data Previous Rx's Medication Instructions Recorded Nicotine 14Mg/24Hr Patch [Habitrol] 1 patch TRANSDERM DAILY #14 patch 01/15/20 PARoxetine [Paxil] 20 mg PO HS #30 tab 01/15/20 QUEtiapine [SEROquel] 50 mg PO DAILY #30 tab 01/15/20 QUEtiapine [SEROquel] 100 mg PO HS #30 tab 01/15/20 Allergies Allergy/AdvReac Type Severity Reaction Status Date / Time iodine Allergy Nausea & Verified 08/14/20 17:41 Vomiting seafood Allergy Unknown Uncoded 01/04/20 06:57 Review of Systems ROS Statement: Those systems with pertinent positive or pertinent negative responses have been documented in the HPI. ROS Other: All systems not noted in ROS Statement are negative. Past Medical History Past Medical History: No Reported History Additional Past Medical History / Comment(s): kidney stones History of Any Multi-Drug Resistant Organisms: MRSA Date of last positivie culture/infection: 05/19/16 MDRO Source:: left leg Past Surgical History: Hernia Repair Additional Past Surgical History / Comment(s): lithotripsy Past Anesthesia/Blood Transfusion Reactions: No Reported Reaction Past Psychological History: No Psychological Hx Reported, Anxiety, PTSD Smoking Status: Current every day smoker Past Alcohol Use History: None Reported Past Drug Use History: Heroin, Marijuana, Methamphetamine General Exam - General Exam Comments Initial Comments: GENERAL: Patient is well-developed and well-nourished. Patient is nontoxic and in no acute distress. HEAD: Atraumatic, normocephalic. EYES: Pupils equal round and reactive to light, extraocular movements intact, sclera anicteric, conjunctiva are normal. Eyelids were unremarkable. ENT: TMs normal, nares patent, oropharynx clear without exudates. Moist mucous membranes. NECK: Normal range of motion, supple without lymphadenopathy or JVD. LUNGS: Unlabored respirations. Breath sounds clear to auscultation bilaterally and equal. No wheezes rales or rhonchi. HEART: Regular rate and rhythm without murmurs, rubs or gallops. ABDOMEN: Soft, nontender, normoactive bowel sounds. No guarding, no rebound. No masses appreciated. : Deferred MUSCULOSKELETAL: Patient has full range of motion of his right hand and fingers. Normal extremities with adequate strength and normal range of motion, no pitting or edema. No clubbing or cyanosis. NEUROLOGICAL: Patient is alert and oriented x 3. Normal speech, normal gait. PSYCH: Normal mood, normal affect. SKIN: Warm, Dry, normal turgor, no rashes. There is a 0.5cm superficial laceration to the right third digit at the IP joint. There is no active bleeding. Limitations: no limitations Course Vital Signs 08/14/20 17:42 Temperature 98 F Medical Decision Making - Medical Decision Making Patient is a 45-year-old male here with a superficial, 0.5 cm laceration to the third digit on the right hand, at the IP joint. His tetanus vaccine was updated today. His wound was cleaned, reinforced with Steri-Strips and covered with bacitracin and a Band-Aid. He is stable for discharge. He is keep area clean and dry. He is in agreement with this plan of care. Disposition Clinical Impression: Laceration of middle finger of right hand without complication Disposition: HOME SELF-CARE Condition: Stable Instructions (If sedation given, give patient instructions): Laceration (ED) Additional Instructions: Please return to the Emergency Department if symptoms worsen or any other concerns. Your tetanus vaccine was updated today. Keep area clean and dry. Cover while working. Is patient prescribed a controlled substance at d/c from ED?: No Referrals: Mariano Villa MD [Primary Care Provider] - 1-2 days
[2020-08-14 18:47] VITALS: RESP 18
== END 2020-08-14 18:47 | disposition home or self-care (01) ==
LOC: EC 17:33
DX: S61.212A Laceration without foreign body of right middle finger without damage to nail, initial encounter (principal); F17.200 Nicotine dependence, unspecified, uncomplicated; Z91.048 Other nonmedicinal substance allergy status; Z91.013 Allergy to seafood; Z23 Encounter for immunization; W26.8XXA Contact with other sharp object(s), not elsewhere classified, initial encounter; Y92.69 Other specified industrial and construction area as the place of occurrence of the external cause; Y99.0 Civilian activity done for income or pay
CPT/HCPCS: 90471; 90715; 99282

== ENCOUNTER 2021-06-03 01:04 | Inpatient (IN) | payer MEDICAID, OTHER ==
--- NOTE | 2021-06-03 01:31 | ED ---
Psych HPI - General Chief Complaint: Psychiatric Symptoms Stated Complaint: Mental health Time Seen by Provider: 06/03/21 01:22 Source: patient, RN notes reviewed, old records reviewed Mode of arrival: ambulatory Limitations: no limitations - History of Present Illness Initial Comments: This is a 46-year-old male to the ER for evaluation patient is severely depressed states he doesn't want to live on this earth anymore has multiple moles that he would kill himself including with a gun of his grandfathers or possible overdose. Patient has no sick contacts or travel history. Denies current drug or alcohol abuse MD Complaint: suicidal ideation, feels depressed -: unknown Associated Psychiatric Symptoms: depression, suicidal ideation History of same: Yes Quality: intermittent, getting worse Worsens With: none Context: significant life stressor (Patient's girlfriend and kids have recently left him) Treatments Prior to Arrival: placed on mental health hold If Self Harm: admits thoughts of self harm - Related Data Previous Rx's Medication Instructions Recorded Nicotine 14Mg/24Hr Patch [Habitrol] 1 patch TRANSDERM DAILY #14 patch 01/15/20 PARoxetine [Paxil] 20 mg PO HS #30 tab 01/15/20 QUEtiapine [SEROquel] 50 mg PO DAILY #30 tab 01/15/20 QUEtiapine [SEROquel] 100 mg PO HS #30 tab 01/15/20 Allergies Allergy/AdvReac Type Severity Reaction Status Date / Time iodine Allergy Nausea & Verified 06/03/21 01:10 Vomiting seafood Allergy Unknown Uncoded 06/03/21 01:10 Review of Systems ROS Statement: Those systems with pertinent positive or pertinent negative responses have been documented in the HPI. ROS Other: All systems not noted in ROS Statement are negative. Past Medical History Past Medical History: No Reported History Additional Past Medical History / Comment(s): kidney stones, previous meth and heroin History of Any Multi-Drug Resistant Organisms: MRSA Date of last positivie culture/infection: 05/19/16 MDRO Source:: left leg Past Surgical History: Hernia Repair Additional Past Surgical History / Comment(s): lithotripsy Past Anesthesia/Blood Transfusion Reactions: No Reported Reaction Past Psychological History: No Psychological Hx Reported, Anxiety, PTSD Smoking Status: Current every day smoker Past Alcohol Use History: None Reported Past Drug Use History: Marijuana General Exam Limitations: no limitations General appearance: alert, in no apparent distress, anxious Head exam: Present: atraumatic, normocephalic, normal inspection Eye exam: Present: normal appearance, PERRL, EOMI. Absent: scleral icterus, conjunctival injection, periorbital swelling ENT exam: Present: normal exam, mucous membranes moist Neck exam: Present: normal inspection. Absent: tenderness, meningismus, lymphadenopathy Respiratory exam: Present: normal lung sounds bilaterally. Absent: respiratory distress, wheezes, rales, rhonchi, stridor Cardiovascular Exam: Present: normal rhythm, tachycardia, normal heart sounds. Absent: systolic murmur, diastolic murmur, rubs, gallop, clicks GI/Abdominal exam: Present: soft, normal bowel sounds. Absent: distended, tenderness, guarding, rebound, rigid Extremities exam: Present: normal inspection, full ROM, normal capillary refill. Absent: tenderness, pedal edema, joint swelling, calf tenderness Back exam: Present: normal inspection Neurological exam: Present: alert, oriented X3, CN II-XII intact Psychiatric exam: Present: normal affect, normal mood Skin exam: Present: warm, dry, intact, normal color. Absent: rash Course Vital Signs 06/03/21 01:10 Temperature 98 F Pulse Rate 109 H Respiratory 18 Rate Blood Pressure 123/77 O2 Sat by Pulse 97 Oximetry - Reevaluation(s) Reevaluation #1: 06/03/21 04:33 Medical record is reviewed Reevaluation #2: 06/03/21 04:33 Medical clear for psychiatric evaluation Medical Decision Making - Medical Decision Making 46 male seen evaluation by psychiatry here in the ER. Patient be admitted for psychiatric evaluation and treatment Disposition Clinical Impression: Major depressive disorder, recurrent severe without psychotic features, Mood disorder, Generalized anxiety disorder, Suicidal ideation Disposition: TRANSFER TO PSYCH HOSP/UNIT Condition: Fair Is patient prescribed a controlled substance at d/c from ED?: No
[2021-06-03] MEDS ORDERED: ACETAMINOPHEN TAB 325 MG TAB PO PRN (04:40)
[2021-06-03] MEDS ORDERED: MAGNESIUM HYDROXIDE 2,400 MG/10 ML CUP PO PRN (04:40)
[2021-06-03] MEDS ORDERED: MAG HYDROX/AL HYDROX/SIMETH 30 ML CUP PO PRN (04:40)
[2021-06-03] MEDS ORDERED: LORazepam 1 MG TAB PO PRN (04:40)
[2021-06-03] MEDS ORDERED: LORazepam 2 MG/ML INJ IM PRN (04:42)
[2021-06-03] MEDS ORDERED: HALOPERIDOL LACTATE 5 MG/ML 1 ML VIAL IM PRN (04:43)
[2021-06-03] MEDS ORDERED: haloperidoL 5 MG TAB PO PRN (04:43)
[2021-06-03 05:51] LABS: Appearance,Urine Clear (Clear); Bilirubin,Urine Negative (Negative); Blood,Urine Negative (Negative); Color,Urine Yellow; Glucose,Urine (UA) Negative (Negative); Ketones,Urine Negative (Negative); Leukocyte Esterase,Urine Negative (Negative); Nitrite,Urine Negative (Negative); PH, Urine 5.5 (5.0-8.0); Protein,Urine Negative (Negative); Specific Gravity,Urine 1.027 (1.001-1.035); Urobilinogen,Urine <2.0 mg/dL (<2.0)
[2021-06-03 05:52] LABS: Amphetamine Screen,Urine Detected (NotDetected); Benzodiazepines Screen,Urine Not Detected (NotDetected); Cocaine Screen,Urine Not Detected (NotDetected); Opiate Screen,Urine Not Detected (NotDetected); Phencyclidine Screen,Urine Not Detected (NotDetected); Tricyclic Antidepressant,Urine Not Detected (NotDetected); Urn Cannabinoid Scrn Detected (NotDetected)
[2021-06-03 05:53] LABS: Barbiturate Screen,Urine Not Detected (NotDetected); Methadone Screen, Urine Not Detected (NotDetected); Oxycodone Screen, Urine Not Detected (NotDetected)
[2021-06-03] MEDS: NICOTINE 14MG/24HR PATCH TRANSDERM SCH (09:00)
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
--- NOTE | 2021-06-03 20:03 | P.CONS ---
History of Present Illness - History of Present Illness This is a pleasant 46 years old male with past medical history of anxiety, PTSD. He was admitted to the mental health unit with signs and symptoms of major depression. Also he has history of substance abuse with cannabis, methamphetamine and previous appendectomy obtuse. Medical consult was requested for routine management Patient was counseled in his bed, lethargic but fully awake, he looks withdrawn and did not interact much, he answered questions with nodding his head, however when I asked the patient he denies any specific symptoms. Also his physical exam looks unremarkable He is hemodynamically stable Urinalysis is not suspicious for infection. Urine drug screen is positive for amphetamine, methamphetamine and marijuana Review of Systems CONSTITUTIONAL: No fever, no malaise, no fatigue. HEENT: No recent visual problems or hearing problems. Denied any sore throat. CARDIOVASCULAR: No orthopnea, PND, no palpitations, no syncope. PULMONARY: No shortness of breath, no cough, no hemoptysis. GASTROINTESTINAL: No diarrhea, no nausea, no vomiting, no abdominal pain. Normoactive bowel sounds. NEUROLOGICAL: No headaches, no weakness, no numbness. HEMATOLOGICAL: Denies any bleeding or petechiae. GENITOURINARY: Denies any burning micturition, frequency, or urgency. MUSCULOSKELETAL/RHEUMATOLOGICAL: Denies any joint pain, swelling, or any muscle pain. ENDOCRINE: Denies any polyuria or polydipsia. Past Medical History Past Medical History: No Reported History Additional Past Medical History / Comment(s): kidney stones, previous meth and heroin History of Any Multi-Drug Resistant Organisms: MRSA Year Discovered:: 05/19/16 MDRO Source:: left leg Past Surgical History: Hernia Repair Additional Past Surgical History / Comment(s): lithotripsy Past Anesthesia/Blood Transfusion Reactions: No Reported Reaction Smoking Status: Current every day smoker Medications and Allergies Home Medications Medication Instructions Recorded Confirmed Type Nicotine 14Mg/24Hr Patch [Habitrol] 1 patch TRANSDERM DAILY #14 patch 01/15/20 Rx PARoxetine [Paxil] 20 mg PO HS #30 tab 01/15/20 Rx QUEtiapine [SEROquel] 50 mg PO DAILY #30 tab 01/15/20 Rx QUEtiapine [SEROquel] 100 mg PO HS #30 tab 01/15/20 Rx Allergies Allergy/AdvReac Type Severity Reaction Status Date / Time iodine Allergy Nausea & Verified 06/03/21 04:37 Vomiting seafood Allergy Unknown Uncoded 06/03/21 04:37 Physical Exam Vitals: Vital Signs Temp Pulse Pulse Resp BP BP Pulse Ox 06/03/21 05:00 98.7 F 89 15 128/82 99 06/03/21 01:10 98 F 109 H 18 123/77 97 Intake and Output 06/02/21 06/03/21 06/03/21 22:59 06:59 14:59 Other: Weight 55.14 kg -GENERAL: The patient is alert and oriented x3, looks very depressed and withdrawn. Well developed, well nourished. HEENT: Pupils are round and equally reacting to light. EOMI. No scleral icterus. No conjunctival pallor. Normocephalic, atraumatic. No pharyngeal erythema. No thyromegaly. CARDIOVASCULAR: S1 and S2 present. No murmurs, rubs, or gallops. PULMONARY: Chest is clear to auscultation, no wheezing or crackles. ABDOMEN: Soft, nontender, nondistended, normoactive bowel sounds. No palpable organomegaly. MUSCULOSKELETAL: No joint swelling or deformity. EXTREMITIES: No cyanosis, clubbing, or pedal edema. NEUROLOGICAL: Gross neurological examination did not reveal any focal deficits. SKIN: No rashes. No petechiae Results Labs: Abnormal Lab Results - Last 24 Hours (Table) 06/03/21 Range/Units 03:31 Ur Amphetamines Screen Detected H (NotDetected) U Methamphetamines Scrn Detected H (NotDetected) U Marijuana (THC) Screen Detected H (NotDetected) Assessment and Plan Assessment: -Major depression and other psychiatric illnesses, as per primary psychiatrist team -Polysubstance abuse, patient is counseled We recommend patient follow up with primary care doctor in 1 week after discharge and he was instructed with the same Thank you for consulting us, we will see the patient on as needed basis. Please feel free to contact us for any further questions
[2021-06-03] MEDS ORDERED: OLANZapine 5 MG TAB PO SCH (21:00)
[2021-06-04] MEDS: cloNIDine HCL 0.1 MG TAB PO SCH ×3 (02:37→22:02)
[2021-06-04 07:53] LABS: Basophils # (A) 0.2 k/uL (0-0.2); Basophils % (A) 1 %; Eosinophils # (A) 0.3 k/uL (0-0.7); Eosinophils % (A) 3 %; HCT 51.4 % (39.0-53.0); HGB 17.2 gm/dL (13.0-17.5); Lymphocytes # (A) 1.9 k/uL (1.0-4.8); Lymphocytes % (A) 16 %; MCHC 33.5 g/dL (31.0-37.0); MCV 95.5 fL (80.0-100.0); Mean Platelet Volume 7.1; Monocytes # (A) 0.8 k/uL (0-1.0); Monocytes % (A) 7 %; Neutrophils # (A) 8.4 k/uL (1.3-7.7); Neutrophils % (A) 71 %; Platelet Count 431 k/uL (150-450); RBC 5.38 m/uL (4.30-5.90); RDW 13.5 % (11.5-15.5); WBC 11.9 k/uL (3.8-10.6)
[2021-06-04 07:59] LABS: ALT 380 U/L (4-49); AST 248 U/L (17-59); African American GFR (CKD) >90 (>60 ml/min/1.73 sqM); Albumin 3.9 g/dL (3.5-5.0); Alkaline Phosphatase 127 U/L (38-126); Anion Gap 9 mmol/L; Blood Urea Nitrogen 16 mg/dL (9-20); Calcium 9.4 mg/dL (8.4-10.2); Carbon Dioxide 18 mmol/L (22-30); Chloride 107 mmol/L (98-107); Glucose 89 mg/dL (74-99); Non-African American GFR(CKD) >90 (>60 ml/min/1.73 sqM); Potassium 4.7 mmol/L (3.5-5.1); Sodium 134 mmol/L (137-145); Total Bilirubin 0.5 mg/dL (0.2-1.3); Total Protein 6.9 g/dL (6.3-8.2)
[2021-06-04] MEDS ORDERED: OLANZapine 2.5 MG TAB PO SCH (09:00)
[2021-06-04] MEDS: NICOTINE 14MG/24HR PATCH TRANSDERM SCH ×2 (09:23→09:24)
[2021-06-04] MEDS: FLUoxetine HCL 10 MG CAP PO SCH (09:24)
--- NOTE | 2021-06-04 11:20 | P.PN ---
Progress Note - Text Progress Note Date: 06/04/21 Interval History: Patient was seen resting in bed and was directable and agreeable to speak with job specification writer in his room. Patient reports that he is feeling better today. He continues to state that he has recent breakup between him and his girlfriend but that he "just needs to live through it." He is currently denying any suicidal or homicidal ideation, intention, and/or plan. He is not reporting any auditory or visual hallucinations. He is denying any paranoia or other delusions. The patient did not take his medication last night as the patient was tired and sleeping already. He did take his medications as morning. He is not reporting any significant side effects at this time. He is denying any issues regarding his appetite or sleep. He has not attended morning groups. Mental Status Exam: General Appearance: Patient appears to be stated age is alert, directable, and cooperative. Fair hygiene and grooming. Short and thin build. Behavior: Patient is calmly seated without any agitated behavior. Eye contact is appropriate. Speech: Patient's speech is fluent and nonpressured. Mood/Affect: Mood is improving mildly, affect is congruent and constricted. Suicidality/Homicidality: Patient denies having any suicidal or homicidal ideation intent or plan. Perceptions: Patient denies any visual hallucinations and denies any auditory hallucinations Though content/process: There is no evidence of any delusional thought content and thought process is linear and goal-directed. Memory and concentration: AOX3, grossly intact for the purposes of this session Judgment and insight: Improving mildly Vital Signs Temp 98.7 F 06/03/21 05:00 Pulse 98 06/04/21 09:36 Resp 15 06/03/21 05:00 BP 113/70 06/04/21 09:36 Pulse Ox 99 06/03/21 05:00 Laboratory Results - Last 24 Hours 06/04/21 06/04/21 06:56 06:56 WBC 11.9 H RBC 5.38 Hgb 17.2 Hct 51.4 MCV 95.5 MCH 32.0 MCHC 33.5 RDW 13.5 Plt Count 431 MPV 7.1 Neutrophils % 71 Lymphocytes % 16 Monocytes % 7 Eosinophils % 3 Basophils % 1 Neutrophils # 8.4 H Lymphocytes # 1.9 Monocytes # 0.8 Eosinophils # 0.3 Basophils # 0.2 Sodium 134 L Potassium 4.7 Chloride 107 Carbon Dioxide 18 L Anion Gap 9 BUN 16 Creatinine 0.68 Est GFR (CKD-EPI)AfAm >90 Est GFR (CKD-EPI)NonAf >90 Glucose 89 Calcium 9.4 Total Bilirubin 0.5 AST 248 H ALT 380 H Alkaline Phosphatase 127 H Total Protein 6.9 Albumin 3.9 TSH 0.507 Assessment Major Depressive Disorder, recurrent, severe, without psychotic features Posttraumatic Stress disorder Rule out intellectual disability Methamphetamine use disorder History of opioid use disorder Cannabis use disorder Generalized Anxiety disorder Plan: -Patient continues to meet criteria for inpatient psychiatric admission for symptom stabilization and safety. Patient has signed adult voluntary form and medication consent and was placed in patient's chart. -Medications: Continue Prozac 30 mg by mouth daily for depression/QTC/anxiety Continue clonidine 0.1 mg by mouth twice a day for PTSD Increase Zyprexa to 5 mg by mouth twice a day for mood augmentation -When necessary Ativan and Haldol for agitation/aggression. -NRT - nicotine patch -SW on board for discharge planning. Encouraged the patient to participate in milieu.
[2021-06-04] MEDS: OLANZapine 5 MG TAB PO SCH (22:02)
[2021-06-05 06:44] VITALS: BP 114/72; PULSE 60; RESP 16; TEMP 97.7
[2021-06-05] MEDS: NICOTINE 14MG/24HR PATCH TRANSDERM SCH (08:49)
[2021-06-05] MEDS: cloNIDine HCL 0.1 MG TAB PO SCH (08:49)
[2021-06-05] MEDS: OLANZapine 5 MG TAB PO SCH (08:49)
[2021-06-05] MEDS: FLUoxetine HCL 10 MG CAP PO SCH (08:49)
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
== END 2021-06-05 13:23 | disposition home or self-care (01) | DRG 885 ==
LOC: EC 01:04 → 3MHU 04:30
PROVIDERS: ADMIT Psychiatry & Neurology Psychiatry; ATTEND Psychiatry & Neurology Psychiatry
DX: F33.2 Major depressive disorder, recurrent severe without psychotic features (principal); R45.851 Suicidal ideations; F79 Unspecified intellectual disabilities; F15.10 Other stimulant abuse, uncomplicated; F12.20 Cannabis dependence, uncomplicated; F11.21 Opioid dependence, in remission; F43.10 Post-traumatic stress disorder, unspecified; F41.1 Generalized anxiety disorder; R45.87 Impulsiveness; F17.210 Nicotine dependence, cigarettes, uncomplicated; Z71.6 Tobacco abuse counseling; Z79.899 Other long term (current) drug therapy; Z59.0 Homelessness; Z91.5 Personal history of self-harm; Z87.442 Personal history of urinary calculi; Z90.49 Acquired absence of other specified parts of digestive tract; Z87.19 Personal history of other diseases of the digestive system; Z86.14 Personal history of Methicillin resistant Staphylococcus aureus infection; Z98.890 Other specified postprocedural states; Z88.8 Allergy status to other drugs, medicaments and biological substances; Z91.013 Allergy to seafood; Z81.8 Family history of other mental and behavioral disorders
CPT/HCPCS: 80053; 80306; 81003; 82075; 83036; 84443; 85025; 99285

== ENCOUNTER 2021-07-16 17:37 | Inpatient (IN) | payer OTHER ==
[2021-07-16 18:53] LABS: Amphetamine Screen,Urine Detected (NotDetected); Barbiturate Screen,Urine Not Detected (NotDetected); Benzodiazepines Screen,Urine Not Detected (NotDetected); Cocaine Screen,Urine Detected (NotDetected); Methadone Screen, Urine Not Detected (NotDetected); Opiate Screen,Urine Not Detected (NotDetected); Oxycodone Screen, Urine Not Detected (NotDetected); Phencyclidine Screen,Urine Not Detected (NotDetected); Tricyclic Antidepressant,Urine Not Detected (NotDetected); Urn Cannabinoid Scrn Detected (NotDetected)
--- NOTE | 2021-07-16 19:40 | ED ---
Psych HPI - General Chief Complaint: Psychiatric Symptoms Stated Complaint: Mental Health Time Seen by Provider: 07/16/21 18:10 Source: patient, RN notes reviewed Mode of arrival: ambulatory Limitations: no limitations - History of Present Illness Initial Comments: 46-year-old male presents emergency Department chief complaint of depression, suicidal ideation. Patient states she's been having increasing depression. Patient states that he has not tried to self-harm. Denies any homicidal denies any significant drug or alcohol abuse. Patient offers no complaints. - Related Data Previous Rx's Medication Instructions Recorded FLUoxetine HCL [PROzac] 30 mg PO DAILY 30 Days cap 06/05/21 Nicotine 14Mg/24Hr Patch [Habitrol] 1 patch TRANSDERM DAILY 30 Days 06/05/21 patch OLANZapine [ZyPREXA] 5 mg PO BID 30 Days tab 06/05/21 cloNIDine HCL [Catapres] 0.1 mg PO BID 30 Days tab 06/05/21 Allergies Allergy/AdvReac Type Severity Reaction Status Date / Time iodine Allergy Nausea & Verified 07/16/21 18:08 Vomiting seafood Allergy Unknown Uncoded 07/16/21 18:08 Review of Systems ROS Statement: Those systems with pertinent positive or pertinent negative responses have been documented in the HPI. ROS Other: All systems not noted in ROS Statement are negative. Past Medical History Past Medical History: No Reported History Additional Past Medical History / Comment(s): kidney stones, previous meth and heroin History of Any Multi-Drug Resistant Organisms: MRSA Date of last positivie culture/infection: 05/19/16 MDRO Source:: left leg Past Surgical History: Hernia Repair Additional Past Surgical History / Comment(s): lithotripsy Past Anesthesia/Blood Transfusion Reactions: No Reported Reaction Past Psychological History: No Psychological Hx Reported, Anxiety, PTSD Smoking Status: Current every day smoker General Exam Limitations: no limitations General appearance: alert, in no apparent distress Head exam: Present: atraumatic, normocephalic, normal inspection Eye exam: Present: normal appearance, PERRL, EOMI. Absent: scleral icterus, conjunctival injection, periorbital swelling ENT exam: Present: normal exam, mucous membranes moist Neck exam: Present: normal inspection, full ROM. Absent: tenderness, meningismus, lymphadenopathy Respiratory exam: Present: normal lung sounds bilaterally. Absent: respiratory distress, wheezes, rales, rhonchi, stridor Cardiovascular Exam: Present: regular rate, normal rhythm, normal heart sounds. Absent: systolic murmur, diastolic murmur, rubs, gallop, clicks GI/Abdominal exam: Present: soft, normal bowel sounds. Absent: distended, tenderness, guarding, rebound, rigid Neurological exam: Present: alert, oriented X3, CN II-XII intact Skin exam: Present: warm, dry, intact, normal color. Absent: rash Course Vital Signs 07/16/21 18:08 Temperature 98.4 F Pulse Rate 84 Respiratory 16 Rate Blood Pressure 118/79 O2 Sat by Pulse 100 Oximetry Medical Decision Making - Medical Decision Making Patient evaluated by EPS will be admitted for psychiatric treatment. - Lab Data Lab Results 07/16/21 Range/Units 18:24 Urine Opiates Screen Not Detected (NotDetected) Ur Oxycodone Screen Not Detected (NotDetected) Urine Methadone Screen Not Detected (NotDetected) Ur Propoxyphene Screen Not Detected (NotDetected) Ur Barbiturates Screen Not Detected (NotDetected) U Tricyclic Antidepress Not Detected (NotDetected) Ur Phencyclidine Scrn Not Detected (NotDetected) Ur Amphetamines Screen Detected H (NotDetected) U Methamphetamines Scrn Detected H (NotDetected) U Benzodiazepines Scrn Not Detected (NotDetected) Urine Cocaine Screen Detected H (NotDetected) U Marijuana (THC) Screen Detected H (NotDetected) Disposition Clinical Impression: Depression, Suicidal ideation Disposition: TRANSFER TO PSYCH HOSP/UNIT Referrals: Mariano Villa MD [Primary Care Provider] - 1-2 days
--- NOTE | 2021-07-16 21:59 | ED ---
Medical Decision Making - Medical Decision Making Patient was tested for COVID-19 prior to being transferred to psychiatric floor patient tested positive. Patient will be admitted medically for psychiatric treatment as he is coated positive. - Lab Data Lab Results 07/16/21 07/16/21 Range/Units 18:24 20:48 Urine Opiates Screen Not Detected (NotDetected) Ur Oxycodone Screen Not Detected (NotDetected) Urine Methadone Screen Not Detected (NotDetected) Ur Propoxyphene Screen Not Detected (NotDetected) Ur Barbiturates Screen Not Detected (NotDetected) U Tricyclic Antidepress Not Detected (NotDetected) Ur Phencyclidine Scrn Not Detected (NotDetected) Ur Amphetamines Screen Detected H (NotDetected) U Methamphetamines Scrn Detected H (NotDetected) U Benzodiazepines Scrn Not Detected (NotDetected) Urine Cocaine Screen Detected H (NotDetected) U Marijuana (THC) Screen Detected H (NotDetected) Coronavirus (PCR) Detected A (Not Detectd) Disposition Clinical Impression: Depression, Suicidal ideation, COVID-19 Disposition: ADMITTED IP TO THIS [facility] Referrals: Mariano Villa MD [Primary Care Provider] - 1-2 days
[2021-07-16] MEDS ORDERED: NALOXONE 0.4 MG/ML 1 ML VIAL IV PRN (22:04)
[2021-07-16 22:17] LABS: AST 589 U/L (17-59); African American GFR (CKD) >90 (>60 ml/min/1.73 sqM); Albumin 3.3 g/dL (3.5-5.0); Alkaline Phosphatase 168 U/L (38-126); Anion Gap 9 mmol/L; Blood Urea Nitrogen 19 mg/dL (9-20); Calcium 9.1 mg/dL (8.4-10.2); Carbon Dioxide 22 mmol/L (22-30); Chloride 104 mmol/L (98-107); Glucose 153 mg/dL (74-99); Non-African American GFR(CKD) >90 (>60 ml/min/1.73 sqM); Sodium 135 mmol/L (137-145); Total Bilirubin 0.7 mg/dL (0.2-1.3); Total Protein 6.1 g/dL (6.3-8.2)
[2021-07-16 22:27] LABS: ALT 1064 U/L (4-49)
[2021-07-16 22:34] LABS: Basophils # (A) 0.1 k/uL (0-0.2); Basophils % (A) 1 %; Eosinophils # (A) 0.1 k/uL (0-0.7); Eosinophils % (A) 1 %; HCT 42.4 % (39.0-53.0); Lymphocytes # (A) 2.6 k/uL (1.0-4.8); Lymphocytes % (A) 21 %; MCH 31.2 pg (25.0-35.0); MCHC 33.6 g/dL (31.0-37.0); MCV 92.8 fL (80.0-100.0); Monocytes # (A) 0.8 k/uL (0-1.0); Monocytes % (A) 6 %; Neutrophils # (A) 8.4 k/uL (1.3-7.7); Neutrophils % (A) 68 %; Platelet Count 448 k/uL (150-450); RBC 4.57 m/uL (4.30-5.90); RDW 13.6 % (11.5-15.5); WBC 12.4 k/uL (3.8-10.6)
[2021-07-16 22:35] LABS: HGB 14.2 gm/dL (13.0-17.5)
[2021-07-16 22:40] LABS: Appearance,Urine Clear (Clear); Bilirubin,Urine Negative (Negative); Blood,Urine Negative (Negative); Color,Urine Yellow; Glucose,Urine (UA) Negative (Negative); Ketones,Urine Negative (Negative); Leukocyte Esterase,Urine Negative (Negative); Nitrite,Urine Negative (Negative); Protein,Urine Negative (Negative); Specific Gravity,Urine 1.017 (1.001-1.035); Urobilinogen,Urine <2.0 mg/dL (<2.0)
[2021-07-17] MEDS: OLANZapine 5 MG TAB PO SCH ×2 (07:26→21:46)
[2021-07-17] MEDS: FLUoxetine HCL 10 MG CAP PO SCH (07:27)
[2021-07-17] MEDS: NICOTINE 14MG/24HR PATCH TRANSDERM SCH (07:27)
--- NOTE | 2021-07-17 11:07 | P.HPIM ---
History of Present Illness Patient was a 41-year-old male came in with the severe depression and suicidal ideation. Patient admits using IV methamphetamine and IV heroine. Patient the is incidentally found to have Covid 19 patient doesn't have any other symptoms at this time. Patient doesn't have any fever chills patient the liver enzymes are elevated AST and ALT ratio is consistent with possible viral hepatitis.. Patient had hep C tested about any ago which was negative. We will order acute hepatitis panel. Patient urine drug screen is positive for amphetamines cocaine and marijuana. Patient does have leukocytosis without any fever chills. Be cause of Covid 19 positivity patient is admitted to medical floor. I'll obtain a chest x-ray and a d-dimer. Patient was started on Lovenox for DVT prophylaxis. Patient did not receive Covid 19 vaccine. REVIEW OF SYSTEMS: CONSTITUTIONAL: No fever, no malaise, no fatigue. HEENT: No recent visual problems or hearing problems. Denied any sore throat. CARDIOVASCULAR: No chest pain, orthopnea, PND, no palpitations, no syncope. PULMONARY: No shortness of breath, no cough, no hemoptysis. GASTROINTESTINAL: No diarrhea, no nausea, no vomiting, no abdominal pain. NEUROLOGICAL: No headaches, no weakness, no numbness. HEMATOLOGICAL: Denies any bleeding or petechiae. GENITOURINARY: Denies any burning micturition, frequency, or urgency. MUSCULOSKELETAL/RHEUMATOLOGICAL: Denies any joint pain, swelling, or any muscle pain. ENDOCRINE: Denies any polyuria or polydipsia. The rest of the 14-point review of systems is negative. PHYSICAL EXAMINATION: GENERAL: The patient is alert and oriented x3, not in any acute distress. Well developed, well nourished. HEENT: Pupils are round and equally reacting to light. EOMI. No scleral icterus. No conjunctival pallor. Normocephalic, atraumatic. No pharyngeal erythema. No thyromegaly. CARDIOVASCULAR: S1 and S2 present. No murmurs, rubs, or gallops. PULMONARY: Chest is clear to auscultation, no wheezing or crackles. ABDOMEN: Soft, nontender, nondistended, normoactive bowel sounds. No palpable organomegaly. MUSCULOSKELETAL: No joint swelling or deformity. EXTREMITIES: No cyanosis, clubbing, or pedal edema. NEUROLOGICAL: Gross neurological examination did not reveal any focal deficits. SKIN: No rashes. Assessment and plan -Depression suicidal ideation: Psychiatry was consulted. -Elevated liver enzymes/transaminitis: We'll obtain acute hepatitis panel. -Positive Covid 19 will obtain a chest x-ray to rule out any Covid 19 pneumonia. Patient is asymptomatic at this time doesn't have any fever only has mild leukocytosis patient will not require any steroids patient will be started on multivitamins, ascorbic acid, zinc. D-dimer was ordered. -Drug abuse history: Counseling was provided - nicotine use: Counseling was provided DVT prophylaxis: Lovenox Past Medical History Past Medical History: No Reported History Additional Past Medical History / Comment(s): kidney stones, previous meth and heroin History of Any Multi-Drug Resistant Organisms: MRSA Date of last positivie culture/infection: 05/19/16 MDRO Source:: left leg Past Surgical History: Hernia Repair Additional Past Surgical History / Comment(s): lithotripsy Past Anesthesia/Blood Transfusion Reactions: No Reported Reaction Past Psychological History: No Psychological Hx Reported, Anxiety, PTSD Smoking Status: Current every day smoker Past Alcohol Use History: None Reported Past Drug Use History: Marijuana Additional Drug Use History / Comment(s): Pt states hes been off herion for 2 years. Sober from alcohol for 20 years. Medications and Allergies Home Medications Medication Instructions Recorded Confirmed Type FLUoxetine HCL [PROzac] 30 mg PO DAILY 30 Days cap 06/05/21 07/16/21 Rx Nicotine 14Mg/24Hr Patch [Habitrol] 1 patch TRANSDERM DAILY 30 Days 06/05/21 07/16/21 Rx patch OLANZapine [ZyPREXA] 5 mg PO BID 30 Days tab 06/05/21 07/16/21 Rx cloNIDine HCL [Catapres] 0.1 mg PO BID 30 Days tab 06/05/21 07/16/21 Rx Allergies Allergy/AdvReac Type Severity Reaction Status Date / Time iodine Allergy Nausea & Verified 07/16/21 18:08 Vomiting seafood Allergy Unknown Uncoded 07/16/21 18:08 Physical Exam Vitals: Vital Signs Temp Pulse Pulse Resp BP BP Pulse Ox 07/17/21 10:39 97.5 F L 81 16 113/71 99 07/17/21 07:30 68 18 07/17/21 05:42 97.5 F L 68 18 130/78 99 07/17/21 02:28 98.3 F 61 16 99/60 98 07/16/21 23:14 98.0 F 16 124/72 97 07/16/21 20:10 88 16 120/77 99 07/16/21 18:08 98.4 F 84 16 118/79 100 Intake and Output 07/16/21 07/17/21 07/17/21 22:59 06:59 14:59 Other: # Voids 1 Weight 49.895 kg Results CBC & Chem 7: 07/16/21 21:30 07/16/21 21:30 Labs: Abnormal Lab Results - Last 24 Hours (Table) 07/16/21 07/16/21 07/16/21 Range/Units 18:24 20:48 21:30 WBC 12.4 H (3.8-10.6) k/uL Neutrophils # 8.4 H (1.3-7.7) k/uL Sodium (137-145) mmol/L Glucose (74-99) mg/dL AST (17-59) U/L ALT (4-49) U/L Alkaline Phosphatase (38-126) U/L Total Protein (6.3-8.2) g/dL Albumin (3.5-5.0) g/dL Ur Amphetamines Screen Detected H (NotDetected) U Methamphetamines Scrn Detected H (NotDetected) Urine Cocaine Screen Detected H (NotDetected) U Marijuana (THC) Screen Detected H (NotDetected) Coronavirus (PCR) Detected A (Not Detectd) 07/16/21 Range/Units 21:30 WBC (3.8-10.6) k/uL Neutrophils # (1.3-7.7) k/uL Sodium 135 L (137-145) mmol/L Glucose 153 H (74-99) mg/dL AST 589 H (17-59) U/L ALT 1064 H (4-49) U/L Alkaline Phosphatase 168 H (38-126) U/L Total Protein 6.1 L (6.3-8.2) g/dL Albumin 3.3 L (3.5-5.0) g/dL Ur Amphetamines Screen (NotDetected) U Methamphetamines Scrn (NotDetected) Urine Cocaine Screen (NotDetected) U Marijuana (THC) Screen (NotDetected) Coronavirus (PCR) (Not Detectd) Thrombosis Risk Factor Assmnt - Choose All That Apply Any of the Below Risk Factors Present?: No Other Risk Factors: No Other congenital or acquired thrombophilia - If yes, enter type in comment: No Thrombosis Risk Factor Assessment Level: Very Low Risk
--- NOTE | 2021-07-17 11:43 | XR ---
EXAMINATION TYPE: XR chest 1V DATE OF EXAM: 07/17/2021 CLINICAL HISTORY: COVID positive. TECHNIQUE: Single AP portable upright view of the chest is obtained. COMPARISON: None. FINDINGS: Small right pleural effusion. No suspicious focal airspace opacity or pneumothorax. Cardia c silhouette size within normal limits. Osseous structures are intact. IMPRESSION: Small right pleural effusion. No suspicious acute infiltrate.
[2021-07-17] MEDS: FAMOTIDINE 20 MG TAB PO SCH (21:45)
[2021-07-17] MEDS: ASCORBIC ACID 500 MG TAB PO SCH (21:46)
[2021-07-17 22:40] LABS: Hepatitis A Antibody IgM Nonreactive (Nonreactive); Hepatitis B Core IgM Reactive (Nonreactive); Hepatitis C IgG Antibody Nonreactive (Nonreactive)
[2021-07-17 23:11] LABS: Hepatitis B Surface Antigen RptReactive (Nonreactive)
[2021-07-18] MEDS: ENOXAPARIN 40 MG/0.4 ML SYRINGE SQ SCH (07:16)
[2021-07-18] MEDS: ASCORBIC ACID 500 MG TAB PO SCH ×2 (07:16→22:57)
[2021-07-18] MEDS: ZINC SULFATE 220 MG CAP PO SCH (07:16)
[2021-07-18] MEDS: FAMOTIDINE 20 MG TAB PO SCH ×2 (07:16→22:57)
[2021-07-18] MEDS: NICOTINE 14MG/24HR PATCH TRANSDERM SCH (07:16)
[2021-07-18] MEDS: FLUoxetine HCL 10 MG CAP PO SCH (07:17)
[2021-07-18] MEDS: OLANZapine 5 MG TAB PO SCH ×2 (07:18→22:58)
[2021-07-18 08:55] LABS: African American GFR (CKD) >90 (>60 ml/min/1.73 sqM); Albumin 3.4 g/dL (3.5-5.0); Albumin/Globulin Ratio 1.1; Alkaline Phosphatase 166 U/L (38-126); Anion Gap 6 mmol/L; Blood Urea Nitrogen 19 mg/dL (9-20); Calcium 8.7 mg/dL (8.4-10.2); Carbon Dioxide 22 mmol/L (22-30); Chloride 106 mmol/L (98-107); Glucose 77 mg/dL (74-99); Non-African American GFR(CKD) >90 (>60 ml/min/1.73 sqM); Sodium 134 mmol/L (137-145); Total Bilirubin 1.1 mg/dL (0.2-1.3); Total Protein 6.4 g/dL (6.3-8.2)
[2021-07-18 09:14] LABS: ALT 1806 U/L (4-49); AST 1371 U/L (17-59)
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
--- NOTE | 2021-07-18 19:44 | PN ---
PROGRESS NOTE DATE OF SERVICE: 07/18/2021 This 46-year-old gentleman who was admitted with suicidal ideation also was found to be COVID positive. The patient is being closely monitored at this time. Apparently the patient's girlfriend also overdosed and passed recently. The patient had history of IV heroin also. The chest x-ray was done which was personally evaluated by me. It showed no significant abnormality except a small right pleural effusion. The laboratory showed white count was 12.4. D-dimer was negative. AST and ALT were elevated, possibly secondary to overdose at this time. The patient has hepatitis B and antigen core IgM antibody was also positive. COVID-19 was also positive. Past medical history reviewed. REVIEW OF SYSTEMS: CARDIOVASCULAR: No angina, palpitations. RESPIRATORY SYSTEM: As mentioned earlier. GI: As mentioned earlier. : No dysuria. NERVOUS SYSTEM: No numbness, weakness. CURRENT MEDICATIONS: Reviewed. They include vitamin C, Lovenox, Pepcid, Prozac, Narcan, Habitrol, Zyprexa. PHYSICAL EXAMINATION: Patient is alert, oriented x3. The pulse is 76, blood pressure is 118/70, respiration 18, temperature 97.6, pulse ox 99% on room air. HEENT: Conjunctivae normal. NECK: No jugular venous distention. CARDIOVASCULAR: S1, S2 muffled. RESPIRATION: Breath sounds diminished at the bases. Scattered rhonchi and crackles. ABDOMEN: Soft, nontender. LEGS: No edema. No swelling. NERVOUS SYSTEM: No focal deficit. LABS: WBC 12.4. Other labs are noted. Sodium 135. ASSESSMENT: 1. Status post overdose and suicidal ideations and substance abuse. 2. Acute COVID-19 infection. 3. Possible acute hepatitis B infection. 4. Elevated liver enzymes and acute hepatitis of undetermined etiology. 5. History of nicotine dependence. 6. Hyponatremia. 7. Change in mental status and metabolic encephalopathy, multifactorial. 8. Increased white count. 9. History of MRSA. 10.History of nephrolithiasis. 11.History of hernia repair. 12.History of lithotripsy. 13.History anxiety, posttraumatic stress disorder. 14.History of nicotine dependence. 15.History of THC. 16.FULL CODE. RECOMMENDATIONS AND DISCUSSION: In this 46-year-old gentleman who presented with multiple complex medical issues, at this time I recommend continuing the current medication, continue symptomatic treatment. Otherwise, repeat labs. LFTs are actually going up. I would recommend stopping hepatotoxic medications and continue to monitor. I would also check a PT/INR. Gastroenterology evaluation also will be sought for the possibility of acute hepatitis B infection. Guarded prognosis. Further recommendations to follow. MMODL / IJN: [id number] / MTDD
[2021-07-19] MEDS: OLANZapine 5 MG TAB PO SCH (08:09)
[2021-07-19] MEDS: ZINC SULFATE 220 MG CAP PO SCH (08:09)
[2021-07-19] MEDS: ASCORBIC ACID 500 MG TAB PO SCH ×2 (08:09→20:58)
[2021-07-19] MEDS: FLUoxetine HCL 10 MG CAP PO SCH (08:09)
[2021-07-19] MEDS: FAMOTIDINE 20 MG TAB PO SCH (08:09)
[2021-07-19] MEDS: NICOTINE 14MG/24HR PATCH TRANSDERM SCH (08:09)
[2021-07-19] MEDS: ENOXAPARIN 40 MG/0.4 ML SYRINGE SQ SCH (08:09)
[2021-07-19 08:44] LABS: Basophils # (A) 0.1 k/uL (0-0.2); Basophils % (A) 1 %; Eosinophils # (A) 0.2 k/uL (0-0.7); Eosinophils % (A) 2 %; HCT 50.5 % (39.0-53.0); HGB 16.4 gm/dL (13.0-17.5); Lymphocytes # (A) 2.3 k/uL (1.0-4.8); Lymphocytes % (A) 22 %; MCH 31.1 pg (25.0-35.0); MCHC 32.5 g/dL (31.0-37.0); MCV 95.9 fL (80.0-100.0); Mean Platelet Volume 7.3; Monocytes # (A) 0.9 k/uL (0-1.0); Monocytes % (A) 8 %; Neutrophils # (A) 6.7 k/uL (1.3-7.7); Neutrophils % (A) 64 %; Platelet Count 410 k/uL (150-450); RBC 5.26 m/uL (4.30-5.90); RDW 13.3 % (11.5-15.5); WBC 10.5 k/uL (3.8-10.6)
[2021-07-19 08:47] LABS: African American GFR (CKD) >90 (>60 ml/min/1.73 sqM); Albumin 3.4 g/dL (3.5-5.0); Alkaline Phosphatase 201 U/L (38-126); Anion Gap 6 mmol/L; Blood Urea Nitrogen 17 mg/dL (9-20); Calcium 9.1 mg/dL (8.4-10.2); Carbon Dioxide 23 mmol/L (22-30); Chloride 106 mmol/L (98-107); Globulin 3.3 g/dL; Glucose 87 mg/dL (74-99); Non-African American GFR(CKD) >90 (>60 ml/min/1.73 sqM); Potassium 5.1 mmol/L (3.5-5.1); Sodium 135 mmol/L (137-145); Total Bilirubin 0.9 mg/dL (0.2-1.3); Total Protein 6.7 g/dL (6.3-8.2)
[2021-07-19 08:54] LABS: ALT 2231 U/L (4-49); AST 1335 U/L (17-59)
--- NOTE | 2021-07-19 16:52 | PN ---
PROGRESS NOTE DATE OF SERVICE: 07/19/2021 This 46-year-old gentleman admitted with suicidal ideation, also had acute Covid 19 infection. The case resource manager and social worker clinical is planning in the facility, which is accepting Covid 19 patients for inpatient psychiatric treatment. No chest pain. No palpitations. No fever. PHYSICAL EXAMINATION: Alert and oriented x2. Pulse 77. Blood pressure 120/78. Respirations 16, temperature 98 degrees, pulse 100 percent on room air. HEENT: Conjunctivae normal. NECK: No JVD. CARDIOVASCULAR: S1, S2 muffled. RESPIRATORY: Breath sounds diminished in the bases. A few scattered rhonchi. ABDOMEN: Soft. NERVOUS SYSTEM: No focal deficits. LABS: CBC within normal limits. D-dimer is 0.28. Sodium 135. LFTs are noted. ASSESSMENT: 1. Status post overdose and suicidal ideation as a substance abuse. 2. Acute Covid 19 infection. 3. Possible acute hepatitis B infection. 4. Elevated liver enzymes and acute hepatitis of undetermined etiology, possibly secondary to hepatitis B. 5. History of nicotine dependence. 6. Hyponatremia. 7. Change in mental status, acute metabolic encephalopathy multifactorial. 8. Increased WBC. 9. History of MRSA. 10.History of nephrolithiasis. 11.History of hernia repair. 12.History of lithotripsy. 13.History of anxiety, posttraumatic stress disorder. 14.History of nicotine dependence. 15.History of THC. 16.FULL CODE. RECOMMENDATIONS AND DISCUSSION: I recommend to continue current medications, management and symptomatic treatment. I recommend repeat labs and avoid hepatotoxic medications. The prognosis guarded because of multiple complex medical issues. Further recommendations to follow. See orders for further details. MMODL / IJN: [id number] /
--- NOTE | 2021-07-19 17:37 | P.CON ---
Consult Note - . Consult date: 07/19/21 Assessment/Plan:: Clinical Problems: Acute grief, rule out major depressive disorder severe without psychotic features, methamphetamine use disorder severe, alcohol use disorder unspecified, cannabis use disorder moderate, opiate use disorder unspecified, Covid positive, hepatitis B positive Interim history: I reviewed the medical record and interviewed the patient. He is on surgery service because he is Covid positive. [facility] suicidal ideation. He complains of continued feelings of depression and intermittent thoughts of suicide. He denied suicidal intent or plan. He ruminates about the of his girlfriend and feels guilty that he was unable to intervene. He requested information about substance abuse treatment. He stated he has never been in substance abuse rehab because he was never interested in stopping drug use. He would like to enter into a program because this first time he has considered stopping his drug use. Olanzapine appears to have been discontinued because the acute hepatic injury. The office assistance notes that the social media coordinator is pursuing transfer to a facility that accepts Covid positive patients. Mental status exam: He presented as a thin somewhat disheveled and tired-appe aring 46-year-old male. He was sitting comfortably in bed. He made eye contact and attended the interview. He cried throughout the interview as he talked about his guilt and remorse. He perseverated about his relationship with his girlfriend. He expressed feelings of hopelessness and helplessness but denied suicide intent or plan. His thinking was organized and goal directed. He did not express psychotic symptoms or delusional beliefs. Assessment: He continues to require psychiatric treatment but isn't appropriate for transfer to our unit due to his Covid status. Plan: Continue medical treatment with psychiatric support. EPS nurse to complete the nursing assessment. Consult social work regarding access to a substance abuse treatment services. I concur with the plan to pursue transfer to a psychiatric facility that accepts Covid positive patients. Increase fluoxetine to 40 mg daily. Psychiatry will continue to follow.
[2021-07-19] MEDS ORDERED: OLANZapine 5 MG TAB PO SCH (21:00)
[2021-07-20 08:25] LABS: African American GFR (CKD) >90 (>60 ml/min/1.73 sqM); Albumin/Globulin Ratio 1.3; Alkaline Phosphatase 215 U/L (38-126); Anion Gap 7 mmol/L; Blood Urea Nitrogen 15 mg/dL (9-20); Calcium 9.4 mg/dL (8.4-10.2); Carbon Dioxide 25 mmol/L (22-30); Chloride 102 mmol/L (98-107); Globulin 3.2 g/dL; Glucose 127 mg/dL (74-99); Non-African American GFR(CKD) >90 (>60 ml/min/1.73 sqM); Potassium 4.8 mmol/L (3.5-5.1); Sodium 134 mmol/L (137-145); Total Bilirubin 1.3 mg/dL (0.2-1.3); Total Protein 7.2 g/dL (6.3-8.2)
[2021-07-20 08:52] LABS: ALT 2780 U/L (4-49); AST 1460 U/L (17-59)
[2021-07-20] MEDS: ASCORBIC ACID 500 MG TAB PO SCH ×2 (09:39→21:58)
[2021-07-20] MEDS: NICOTINE 14MG/24HR PATCH TRANSDERM SCH (09:39)
[2021-07-20] MEDS: FLUoxetine HCL 20 MG CAP PO SCH (09:39)
[2021-07-20] MEDS: ZINC SULFATE 220 MG CAP PO SCH (09:39)
[2021-07-20] MEDS: ENOXAPARIN 40 MG/0.4 ML SYRINGE SQ SCH (09:40)
[2021-07-20 12:16] LABS: Basophils # (A) 0.15 X 10*3/uL (0.00-0.10); Basophils % (A) 1.4 %; Eosinophils % (A) 1.9 %; HCT 51.5 % (39.6-50.0); HGB 16.9 g/dL (13.0-17.0); Lymphocytes # (A) 2.55 X 10*3/uL (0.90-5.00); Lymphocytes % (A) 23.7 %; MCH 31.2 pg (27.0-32.0); MCHC 32.8 g/dL (32.0-37.0); MCV 95.2 fL (80.0-97.0); Mean Platelet Volume 8.6 fL (9.5-12.2); Monocytes # (A) 1.27 X 10*3/uL (0.20-1.00); Monocytes % (A) 11.8 %; Neutrophils # (A) 6.52 X 10*3/uL (1.80-7.70); Neutrophils % (A) 60.5 %; Platelet Count 364 X 10*3/uL (140-440); RBC 5.41 X 10*6/uL (4.40-5.60); RDW 13.7 % (11.5-14.5); WBC 10.77 X 10*3/uL (4.50-10.00)
--- NOTE | 2021-07-20 19:01 | PN ---
PROGRESS NOTE DATE OF SERVICE: 07/20/2021 This is a 46-year-old gentleman who was admitted after overdose and suicidal ideations. He also had COVID-19 positivity. No chest pain. No palpitations. No fever. The patient is awaiting placement. PHYSICAL EXAMINATION: Alert and oriented x3. Pulse 79, blood pressure 117/70, respiration 18, temperature 98.8, pulse ox 98% on room air. HEENT: Conjunctivae normal. Oral mucosa moist. NECK: No jugular venous distention. No lymph node enlargement. CARDIOVASCULAR: S1, S2, muffled. No S3, no S4, RESPIRATORY: Diminished breath sounds at the bases. A few scattered rhonchi. ABDOMEN: Soft. NERVOUS SYSTEM: No focal deficits. LAB STUDIES: WBC 10.77. Sodium 134. LFTs are AST 1460 and ALT is 2760. ASSESSMENT: 1. Status post overdose with suicidal ideations and substance abuse. 2. Acute COVID-19 infection. 3. Possible acute hepatitis B infection. 4. Elevated liver enzymes, acute hepatitis of undetermined etiology, possibly secondary to hepatitis B. 5. History of nicotine dependence. 6. Hypernatremia. 7. Change in mental status, acute metabolic encephalopathy, multifactorial. 8. Increased WBC. 9. History of MRSA. 10.History of nephrolithiasis. 11.History of hernia repair. 12.History of lithotripsy. 13.History of anxiety, posttraumatic stress disorder. 14.History of nicotine dependence. 15.History of THC. 16.FULL CODE. RECOMMENDATIONS AND DISCUSSION: Recommend to continue current management and symptomatic treatment. Otherwise, at this time I would also recommend to avoid hepatotoxic medications and otherwise we will continue to monitor. Guarded prognosis. Further recommendations to follow. MMODL / IJN: [id number] /
[2021-07-20 19:40] LABS: Prothrombin Time 10.8 sec (9.0-12.0)
[2021-07-21] MEDS ORDERED: MAG HYDROX/AL HYDROX/SIMETH 30 ML CUP PO PRN (06:29)
[2021-07-21] MEDS: FLUoxetine HCL 20 MG CAP PO SCH (08:36)
[2021-07-21] MEDS: ZINC SULFATE 220 MG CAP PO SCH (08:36)
[2021-07-21] MEDS: ASCORBIC ACID 500 MG TAB PO SCH ×2 (08:36→20:21)
[2021-07-21] MEDS: NICOTINE 14MG/24HR PATCH TRANSDERM SCH (08:37)
[2021-07-21 11:22] LABS: Basophils # (A) 0.12 X 10*3/uL (0.00-0.10); Basophils % (A) 1.1 %; Eosinophils # (A) 0.17 X 10*3/uL (0.04-0.35); Eosinophils % (A) 1.6 %; HCT 45.2 % (39.6-50.0); HGB 14.9 g/dL (13.0-17.0); Lymphocytes # (A) 2.67 X 10*3/uL (0.90-5.00); MCH 30.7 pg (27.0-32.0); MCV 93.2 fL (80.0-97.0); Mean Platelet Volume 8.7 fL (9.5-12.2); Monocytes # (A) 1.22 X 10*3/uL (0.20-1.00); Monocytes % (A) 11.4 %; Neutrophils # (A) 6.46 X 10*3/uL (1.80-7.70); Neutrophils % (A) 60.3 %; Platelet Count 339 X 10*3/uL (140-440); RBC 4.85 X 10*6/uL (4.40-5.60); RDW 13.7 % (11.5-14.5)
[2021-07-21 12:02] LABS: African American GFR (CKD) 127.4 (60.0-200.0); Albumin 3.7 g/dL (3.8-4.9); Albumin/Globulin Ratio 1.45 (1.60-3.17); Anion Gap 11.6 mmol/L (4.00-12.00); BUN/Creat Ratio 18.06 Ratio (12.00-20.00); Blood Urea Nitrogen 13.8 mg/dL (9.0-27.0); Calcium 9.1 mg/dL (8.7-10.3); Carbon Dioxide 21.6 mmol/L (21.6-31.8); Globulin 2.5 g/dL (1.6-3.3); Potassium 4.9 mmol/L (3.5-5.5); Total Bilirubin 1.1 mg/dL (0.30-1.20); Total Protein 6.2 g/dL (6.2-8.2)
--- NOTE | 2021-07-21 13:45 | P.PN ---
Progress Note - Text Progress Note Date: 07/21/21 Interval History: Patient was seen resting in bed. The patient is currently not endorsing any suicidal or homicidal ideation, intention, and/or plan. The patient reports that he is feeling better today and states that he is looking forward to eating his meal after diagnostic work regarding his liver is completed. The patient states that he has been feeling very sad for the last few days because of the recent loss of his girlfriend Martina who due to overdose. The patient does admit to grief and low mood but states that he is feeling overall better and expresses a strong desire to live. He is not endorsing any significant symptoms of psychosis. He reports no auditory or visual hallucinations. He denies any paranoia or other delusions. The patient does not endorse any significant symptoms of bipolar disorder. The patient was counseled at length on all his polysubstance use disorder and was advised to avoid all substances, especially methamphetamines. The patient does express understanding. The patient states that he will go tremors department should he feel he is suicidal but states that he is feeling much better and does not need inpatient psychiatric treatment at this time. Mental Status Exam: General Appearance: Patient appears to be stated age is alert, directable, and cooperative. The patient has multiple tattoos. Behavior: Patient is calmly seated without any agitated behavior. Eye contact is appropriate. Speech: Patient's speech is fluent and nonpressured. Mood/Affect: Mood is improving mildly, affect is congruent and constricted. Suicidality/Homicidality: Patient denies having any suicidal or homicidal ideation intent or plan. Perceptions: Patient denies any visual hallucinations and denies any auditory hallucinations Though content/process: There is no evidence of any delusional thought content and thought process is linear and goal-directed. Memory and concentration: AOX3, grossly intact for the purposes of this session Judgment and insight: Improving mildly Vital Signs Temp 98.1 F 07/21/21 09:01 Pulse 80 07/21/21 09:01 Resp 18 07/21/21 09:01 BP 123/71 07/21/21 09:01 Pulse Ox 98 07/21/21 09:01 Intake & Output 07/20/21 07/21/21 07/21/21 18:59 06:59 18:59 Intake Total 250 Balance 250 Intake: Oral 250 Other: Voiding Method Toilet Toilet # Voids 2 3 # Bowel Movements 0 Laboratory Results - Last 24 Hours 07/20/21 07/21/21 07/21/21 18:15 06:55 06:55 WBC 10.70 H RBC 4.85 Hgb 14.9 Hct 45.2 MCV 93.2 MCH 30.7 MCHC 33.0 RDW 13.7 Plt Count 339 MPV 8.7 L Immature Gran % (Auto) 0.6 Absolute Nucleated RBC 0 Neutrophils % 60.3 Lymphocytes % 25.0 Monocytes % 11.4 Eosinophils % 1.6 Basophils % 1.1 Immature Gran # 0.06 H Neutrophils # 6.46 Lymphocytes # 2.67 Monocytes # 1.22 H Eosinophils # 0.17 Basophils # 0.12 H NRBC/100 WBC Diff 0 PT 10.8 INR 1.0 Sodium 134 L Potassium 4.9 Chloride 101 Carbon Dioxide 21.6 Anion Gap 11.60 BUN 13.8 Creatinine 0.8 Est GFR (CKD-EPI)AfAm 127.4 Est GFR (CKD-EPI)NonAf 110.0 BUN/Creatinine Ratio 18.06 Glucose 121 H Calcium 9.1 Total Bilirubin 1.10 AST 870 H ALT 2251 H Alkaline Phosphatase 197 H Total Protein 6.2 Albumin 3.7 L Globulin 2.5 Albumin/Globulin Ratio 1.45 L Assessment Acute bereavement Methamphetamine use disorder, severe Alcohol use disorder, unspecified Cannabis use disorder, moderate Opiate use disorder, unspecified Covid positive Hepatitis B positive Plan: -At this time patient DOES NOT meet criteria for inpatient psychiatric admission. The patient is currently not endorsing any suicidal or homicidal ideation, intention, he is presenting with acute bereavement and grief but is open to going to grief counseling and outpatient services. He has been tolerating his medications well and is not presenting with any imminent risk of harm to self or others. He is at chronically increased risk for self-harm due to his polysubstance abuse. -Would recommend the following medication changes/additions: Continue Prozac 40 mg by mouth daily for depression/anxiety -We will discontinue 1:1 sitter. -Recommend outpatient psychiatric follow-up for this patient. -Safety planning with the patient did occur. The patient was advised to return to the emergency department should he feel imminent risk of harm to self or others. Patient is agreeable at this time. -Psychiatry will sign off at this point, please contact with any questions.
--- NOTE | 2021-07-21 15:12 | P.CONS ---
History of Present Illness - Reason for Consult Consult date: 07/21/21 Hepatitis B Requesting physician: Tmi Sanabria - Chief Complaint Depression, suicidal ideation - History of Present Illness This is a 46-year-old with a significant history of polysubstance abuse including methamphetamines, heroin, marijuana who was admitted for severe depression and suicidal ideation. He was noted on admission to have elevation in his LFTs. He was also positive for lane virus. Although he states he has no symptoms such as cough, shortness of breath, fever, body aches, or chills. He underwent acute hepatitis panel that showed a positive hepatitis B IgM antibody with a positive hepatitis B antigen therefore gastroenterology was consulted. The patient states he does have a history of paranoid abuse, states he does not share needles. He denies any previous history of hepatitis B. Apparently he recently lost his girlfriend due to a heroin overdose. His urine drug screen came back positive for amphetamines, methamphetamines, cocaine and marijuana. He denies any previous history of liver disease. He currently denies any abdominal pain, nausea, or vomiting. On presentation WBC 10.5 hemoglobin 16.4 hematocrit 50.5 platelet count 410,000 INR 1.0 total bilirubin was 1.1 AST 1371 ALT 1806 and alkaline phosphatase 166. Repeat total bilirubin 1.1 AST 870 ALT 2251 Alkaline phosphatase 197. Review of Systems REVIEW OF SYSTEMS: CARDIOPULMONARY: No chest pain or shortness of breath. Gastrointestinal: No abdominal pain. No nausea or vomiting. No hematemesis, coffee-ground emesis. No rectal bleeding, or melena. GENITOURINARY: No dysuria or hematuria. MUSCULOSKELETAL: Reports normal range of motion., Joint pain. SKIN: No rashes. No jaundice. ENDOCRINE: No chills, fevers. No excessive weight gain or loss. No polydipsia or polyuria. PSYCHIATRIC: Depressed, suicidal thoughts but no suicidal plan. Polysubstance abuse. NEUROLOGY: No change in mental status. Denies dizziness, headache. ENT: Vision unremarkable. CONSTITUTIONAL: No recent weight loss. No fever, chills, night sweats. Past Medical History Past Medical History: No Reported History Additional Past Medical History / Comment(s): kidney stones, previous meth and heroin History of Any Multi-Drug Resistant Organisms: MRSA Year Discovered:: 05/19/16 MDRO Source:: left leg Past Surgical History: Hernia Repair Additional Past Surgical History / Comment(s): lithotripsy Past Anesthesia/Blood Transfusion Reactions: No Reported Reaction Past Psychological History: No Psychological Hx Reported, Anxiety, PTSD Smoking Status: Current every day smoker Past Alcohol Use History: None Reported Past Drug Use History: Marijuana Additional Drug Use History / Comment(s): Pt states hes been off herion for 2 years. Sober from alcohol for 20 years. Medications and Allergies Home Medications Medication Instructions Recorded Confirmed Type FLUoxetine HCL [PROzac] 30 mg PO DAILY 30 Days cap 06/05/21 07/16/21 Rx Nicotine 14Mg/24Hr Patch [Habitrol] 1 patch TRANSDERM DAILY 30 Days 06/05/21 07/16/21 Rx patch OLANZapine [ZyPREXA] 5 mg PO BID 30 Days tab 06/05/21 07/16/21 Rx cloNIDine HCL [Catapres] 0.1 mg PO BID 30 Days tab 06/05/21 07/16/21 Rx Allergies Allergy/AdvReac Type Severity Reaction Status Date / Time iodine Allergy Nausea & Verified 07/16/21 18:08 Vomiting seafood Allergy Unknown Uncoded 07/16/21 18:08 Physical Exam Vitals: Vital Signs Temp Pulse Resp BP Pulse Ox 07/21/21 09:01 98.1 F 80 18 123/71 98 07/21/21 05:26 97.6 F 65 16 116/71 96 07/21/21 02:19 98.2 F 60 116/77 98 07/20/21 21:35 78 18 07/20/21 21:29 98.0 F 78 124/79 98 07/20/21 18:23 98.7 F 83 18 134/78 99 07/20/21 15:01 98.8 F 79 18 117/71 99 Intake and Output 07/20/21 07/21/21 07/21/21 22:59 06:59 14:59 Intake Total 250 Balance 250 Intake: Oral 250 Other: Voiding Method Toilet Toilet # Voids 2 3 # Bowel Movements 0 0 General appearance: The patient is alert, oriented, appears in no acute distress. HET: Head is normocephalic and atraumatic. Conjunctiva pink. Sclera anicteric. Neck: Supple without lymphadenopathy. Trachea midline. Heart: S1 S2. Regular rate and rhythm. Lungs: Clear to auscultation. Abdomen: Soft, thin, nondistended with bowel sounds. No guarding or rigidity. Skin: No rashes. No jaundice. Tattoos. Extremities: Normal skin color and turgor. No pedal edema. Neurological: No focal deficits. Alert and oriented 3.. Results CBC & Chem 7: 07/21/21 06:55 07/21/21 06:55 Labs: Abnormal Lab Results - Last 24 Hours (Table) 07/20/21 Range/Units 07:51 WBC 10.77 H (4.50-10.00) X 10*3/uL Hct 51.5 H (39.6-50.0) % MPV 8.6 L (9.5-12.2) fL Immature Gran # 0.08 H (0.00-0.04) X 10*3/uL Monocytes # 1.27 H (0.20-1.00) X 10*3/uL Basophils # 0.15 H (0.00-0.10) X 10*3/uL Assessment and Plan (1) Acute hepatitis B Narrative/Plan: 46-year-old male who presented to the emergency department for evaluation of depression with suicidal ideation. Patient has significant history of depression, anxiety disorder, posterior somatic stress disorder and polysubstance abuse including IV heroin use. On admission patient was noted to have elevation in his LFTs and he underwent acute hepatitis panel which was positive for hepatitis B. Patient also came back positive for lane virus. Patient denies any previous history of liver disease. He had no knowledge of hepatitis B. Patient states he is a heroin user however denies sharing his need les. Patient recently lost his girlfriend to a heroin overdose. This is what he states caused him to have increased depression and suicidal thoughts. On admission total bilirubin 1.1 AST 1371 ALT 1806 alkaline phosphatase 166. Hepatitis be IgM antibody reactive as well as hepatitis B antigen, with elevated LFTs patient has acute hepatitis B. There are no plans for antiviral therapy, 99% of people's infection will convert on their own. Will continue to monitor and will need outpatient follow up. Current Visit: Yes Status: Acute Code(s): B16.9 - ACUTE HEPATITIS B W/O DELTA-AGENT AND WITHOUT HEPATIC COMA SNOMED Code(s): 12066332 (2) COVID-19 Current Visit: Yes Status: Acute Code(s): U07.1 - COVID-19 SNOMED Code(s): 570519884 (3) Heroin abuse Current Visit: Yes Status: Acute Code(s): F11.10 - OPIOID ABUSE, UNCOMPLICATED SNOMED Code(s): 8494639 (4) Depression Current Visit: Yes Status: Acute Code(s): F32.A - SNOMED Code(s): 89449493 (5) Methamphetamine abuse Current Visit: No Status: Chronic Priority: Medium Code(s): F15.10 - OTHER STIMULANT ABUSE, UNCOMPLICATED SNOMED Code(s): 782299021 Plan: 1. Continue symptomatic supportive care 2. Continue daily CMP 3. Continue current medical management and psychiatric care 4. Avoid hepatotoxic medications 5. Discussed with patient importance of abstinence of polysubstance abuse, not to share needles and avoid unprotected sex for risk of transmission. 6. No plans on antiviral therapy, patient to follow-up with gastroenterology outpatient Thank you for this consultation, we will continue to follow. Dr. Jason Walker I agree with the dictator's note, documented as a scribe by Matilde Herrera.
--- NOTE | 2021-07-21 16:35 | US ---
EXAMINATION TYPE: US liver DATE OF EXAM: 07/21/2021 COMPARISON: NONE CLINICAL HISTORY: elevated LFTs. Covid pt, depression shade did not work in room and sun glare was on screen, gains are a bit off EXAM MEASUREMENTS: Liver Length: 16.8 cm Gallbladder Wall: 0.2 cm CBD: 0.8 cm Right Kidney: 9.5 x 4.8 x 5.1 cm Pancreas: wnl Liver: wnl Gallbladder: wnl Evidence for sonographic Vilchis's sign: no CBD: wnl Right Kidney: wnl IMPRESSION: 1. No discrete hepatic masses. Biliary hepatic vascularity somewhat hyperechoic and may be related to technical factors. Follow-up can be performed as clinically indicated.
--- NOTE | 2021-07-21 18:59 | PN ---
PROGRESS NOTE DATE OF SERVICE: 07/21/2021 This 46-year-old gentleman who was admitted with acute COVID-19 infection also had suicidal ideation. The patient also had elevated LFTs. The patient underwent a liver ultrasound which showed no acute abnormality. No chest pain. No palpitations. No fever. PHYSICAL EXAMINATION: Alert and oriented x3. Pulse 71, blood pressure 123/76, respiration 18, temperature 97.6, pulse ox 99% on room air. HEENT: Conjunctivae normal. NECK: No jugular venous distention. CARDIOVASCULAR: S1, S2 muffled. RESPIRATION: Breath sounds diminished at the bases. ABDOMEN: Soft. NERVOUS SYSTEM: No focal deficit. LABS: WBC .7, sodium 134. AST is 87 and ALT is 2251. Alkaline phosphatase is 197. ASSESSMENT: 1. Status post overdose with suicidal ideation and substance abuse. 2. Acute COVID-19 infection. 3. Possible acute hepatitis B infection. 4. Elevated liver enzymes and acute hepatitis of undetermined etiology, possibly secondary to hepatitis B. 5. History of nicotine dependence. 6. Hyponatremia. 7. Change in mental status, acute metabolic encephalopathy multifactorial. 8. Increased white count. 9. History of MRSA. 10.History of nephrolithiasis. 11.History of hernia repair. 12.History of lithotripsy. 13.History of anxiety, post-traumatic stress disorder. 14.History of nicotine dependence. 15.History of THC. 16.FULL CODE. RECOMMENDATIONS AND DISCUSSION: I recommend to continue current medications, continue with symptomatic treatment. Liver ultrasound did not show any acute abnormality. The patient was also seen by Gastroenterology and recommended continuing the current medications and also possible outpatient followup for the acute hepatitis B infection. Prognosis is guarded because of the multiple complex medical issues. Further recommendations to follow. MMODL / IJN: [id number] / MTDEmma
[2021-07-22] MEDS: ZINC SULFATE 220 MG CAP PO SCH (08:00)
[2021-07-22] MEDS: FLUoxetine HCL 20 MG CAP PO SCH (08:00)
[2021-07-22] MEDS: NICOTINE 14MG/24HR PATCH TRANSDERM SCH (08:00)
[2021-07-22] MEDS: ASCORBIC ACID 500 MG TAB PO SCH (08:00)
[2021-07-22 10:10] VITALS: BP 116/76; PULSE 68; RESP 17; TEMP 98.3
[2021-07-22 10:11] LABS: Basophils # (A) 0.1 k/uL (0-0.2); Basophils % (A) 1 %; Eosinophils # (A) 0.1 k/uL (0-0.7); Eosinophils % (A) 1 %; HGB 16.2 gm/dL (13.0-17.5); Lymphocytes # (A) 1.8 k/uL (1.0-4.8); Lymphocytes % (A) 19 %; MCH 30.7 pg (25.0-35.0); MCHC 31.8 g/dL (31.0-37.0); MCV 96.5 fL (80.0-100.0); Mean Platelet Volume 6.6; Monocytes # (A) 0.7 k/uL (0-1.0); Monocytes % (A) 7 %; Neutrophils # (A) 6.5 k/uL (1.3-7.7); Neutrophils % (A) 68 %; Platelet Count 352 k/uL (150-450); RBC 5.29 m/uL (4.30-5.90); RDW 13.3 % (11.5-15.5); WBC 9.6 k/uL (3.8-10.6)
[2021-07-22 10:19] LABS: African American GFR (CKD) >90 (>60 ml/min/1.73 sqM); Albumin 3.9 g/dL (3.5-5.0); Albumin/Globulin Ratio 1.1; Alkaline Phosphatase 213 U/L (38-126); Anion Gap 9 mmol/L; Blood Urea Nitrogen 16 mg/dL (9-20); Carbon Dioxide 27 mmol/L (22-30); Chloride 101 mmol/L (98-107); Globulin 3.5 g/dL; Glucose 116 mg/dL (74-99); Non-African American GFR(CKD) >90 (>60 ml/min/1.73 sqM); Potassium 4.8 mmol/L (3.5-5.1); Sodium 137 mmol/L (137-145); Total Protein 7.4 g/dL (6.3-8.2)
[2021-07-22 10:30] LABS: AST 1139 U/L (17-59)
[2021-07-22 11:04] LABS: ALT 2658 U/L (4-49)
--- NOTE | 2021-07-22 12:27 | P.PN ---
Subjective Progress Note Date: 07/22/21 This is a 46-year-old male with a significant history of polysubstance abuse including heroin use. He was admitted to the hospital for depression and suicidal ideation. He was noted to be positive for lane virus as well as having elevation in his LFTs. On further testing he did show positive for hepa titis B IgM antibody and positive hepatitis B antigen. Patient was unaware of previous diagnosis of hepatitis B. He denies any previous history of any liver disease or known LFT elevation. He denies any abdominal pain, nausea, or vomiting. Denies any significant history of alcohol abuse. Ultrasound of the liver show no discrete hepatic masses. Biliary hepatic vascularity somewhat hyperechoic and may be related to technical factors. Follow-up can be performed as clinically indicated. Repeat LFTs today total bilirubin 2.0 AST 1139 PLT 2658 alkaline phosphatase 213. Objective - Vital Signs Vital signs: Vital Signs Temp 97.8 F 07/22/21 08:00 Pulse 59 L 07/22/21 08:00 Resp 16 07/22/21 08:00 BP 110/71 07/22/21 08:00 Pulse Ox 99 07/22/21 08:00 Intake & Output 07/21/21 07/22/21 07/22/21 18:59 06:59 18:59 Other: Voiding Method Toilet Toilet # Voids 3 # Bowel Movements 0 - Exam General appearance: The patient is alert, oriented, appears in no acute distress. HET: Head is normocephalic and atraumatic. Conjunctiva pink. Sclera anicteric. Neck: Supple without lymphadenopathy. Abdomen: Soft, nontender, nondistended with bowel sounds. No guarding or rigidity. Extremities: Normal skin color and turgor. No pedal edema Skin: No rashes, no jaundice Neurological: No focal deficits. Alert and oriented -3. - Labs CBC & Chem 7: 07/22/21 09:40 07/22/21 09:40 Labs: Abnormal Lab Results - Last 24 Hours (Table) 07/21/21 07/21/21 Range/Units 06:55 06:55 WBC 10.70 H (4.50-10.00) X 10*3/uL MPV 8.7 L (9.5-12.2) fL Immature Gran # 0.06 H (0.00-0.04) X 10*3/uL Monocytes # 1.22 H (0.20-1.00) X 10*3/uL Basophils # 0.12 H (0.00-0.10) X 10*3/uL Sodium 134 L (135-145) mmol/L Glucose 121 H (70-110) mg/dL AST 870 H (14-35) U/L ALT 2251 H (10-49) U/L Alkaline Phosphatase 197 H (41-126) U/L Albumin 3.7 L (3.8-4.9) g/dL Albumin/Globulin Ratio 1.45 L (1.60-3.17) g/dL Assessment and Plan (1) Acute hepatitis B Narrative/Plan: 46-year-old male who presented to the emergency department for evaluation of depression with suicidal ideation. Patient has significant history of depression, anxiety disorder, posterior somatic stress disorder and polysubstance abuse including IV heroin use. On admission patient was noted to have elevation in his LFTs and he underwent acute hepatitis panel which was positive for hepatitis B. Patient also came back positive for lane virus. Patient denies any previous history of liver disease. He had no knowledge of hepatitis B. Patient states he is a heroin user however denies sharing his ne edles. Patient recently lost his girlfriend to a heroin overdose. This is what he states caused him to have increased depression and suicidal thoughts. On admission total bilirubin 1.1 AST 1371 ALT 1806 alkaline phosphatase 166. Hepatitis be IgM antibody reactive as well as hepatitis B antigen, with elevated LFTs patient has acute hepatitis B. There are no plans for antiviral therapy, greater than 90% clear on their own Will continue to monitor and will need outpatient follow up. Current Visit: Yes Status: Acute Code(s): B16.9 - ACUTE HEPATITIS B W/O DELTA-AGENT AND WITHOUT HEPATIC COMA SNOMED Code(s): 86106541 (2) COVID-19 Current Visit: Yes Status: Acute Code(s): U07.1 - COVID-19 SNOMED Code(s): 922972510 (3) Heroin abuse Current Visit: Yes Status: Acute Code(s): F11.10 - OPIOID ABUSE, UNCOMPLICATED SNOMED Code(s): 5169861 (4) Depression Current Visit: Yes Status: Acute Code(s): F32.A - SNOMED Code(s): 79383126 (5) Methamphetamine abuse Current Visit: No Status: Chronic Priority: Medium Code(s): F15.10 - OTHER STIMULANT ABUSE, UNCOMPLICATED SNOMED Code(s): 932450360 Plan: 1. Continue symptomatic supportive care 2. Continue daily CMP 3. Continue current medical management and psychiatric care 4. Avoid hepatotoxic medications 5. Discussed with patient importance of abstinence of polysubstance abuse, not to share needles and avoid unprotected sex for risk of transmission. 6. No plans on antiviral therapy, patient to follow-up with gastroenterology outpatient Thank you for this consultation, we will continue to follow. Dr. Jason Walker I agree with the dictator's note, documented as a scribe by Matilde Herrera.
[2021-07-22 13:30] VITALS: BMI 19.5
--- NOTE | 2021-07-22 18:43 | DS ---
DISCHARGE SUMMARY DATE OF SERVICE: 07/22/2021 FINAL DIAGNOSES: 1. Status post overdose with suicidal ideations and substance abuse, improved. 2. Acute COVID-19 infection. 3. Acute hepatitis B infection. 4. Elevated liver enzymes and acute hepatitis secondary to acute hepatitis B. 5. History of nicotine dependence. 6. Hyponatremia. 7. Change in mental status, acute metabolic encephalopathy, multifactorial. 8. Increased white count. 9. History of MRSA. 10.History of nephrolithiasis. 11.History of hernia repair. 12.History of lithotripsy. 13.History of anxiety, post-traumatic stress disorder. 14.History of nicotine dependence. 15.History of THC. 16.FULL CODE. DISCHARGE DISPOSITION: The patient will be discharged in stable condition with guarded prognosis. Psychiatry cleared the patient. HISTORY OF PRESENT ILLNESS: This 46-year-old gentleman with a past medical history of multiple medical problems was admitted with acute overdose, suicidal ideations. COVID-19 was also positive, but the patient is rather stable. Patient was treated symptomatically and improved significantly. Patient also had acute hepatitis B. LFTs were elevated significantly. Dr. Walker saw the patient and recommended outpatient followup. Currently bilirubin is 2 and AST was 1139 and ALT was 2658, showing some diminishing trends, and alkaline phosphatase was 213. On exam, vitals are stable. CARDIOVASCULAR: S1, S2 muffled. ABDOMEN: Soft. NERVOUS SYSTEM: No focal deficit. DISCHARGE ADVICE AND MEDICATIONS: 1. Diet is cardiac. 2. Activity limited until followup. 3. Follow up with Dr. Villa in 2-3 days. 4. Follow up with Dr. Walker as recommended. 5. Follow up with Psych as recommended. 6. Catapres 0.1 p.o. b.i.d. 7. Habitrol 14 daily. 8. Zinc sulfate 220 mg p.o. daily. 9. Prozac 20 mg daily. 10.Vitamin C 500 mg p.o. b.i.d. 11.Follow up with Dr. Villa regarding CBC, CMP, PT, INR. 12.Follow up with Dr. Walker also. Once again, the patient will be discharged in stable condition with guarded prognosis with multiple complex medical issues at this time. MMODL / IJN: [id number] /
== END 2021-07-22 17:18 | disposition home or self-care (01) | DRG 177 ==
LOC: EC 17:37 → 4SSUR 22:01 → OBSVTOIN 07-19 08:27
PROVIDERS: ADMIT Internal Medicine; ATTEND Internal Medicine
DX: U07.1 COVID-19 (principal); G93.41 Metabolic encephalopathy; B16.9 Acute hepatitis B without delta-agent and without hepatic coma; E87.0 Hyperosmolality and hypernatremia; E87.1 Hypo-osmolality and hyponatremia; F15.20 Other stimulant dependence, uncomplicated; R45.851 Suicidal ideations; F79 Unspecified intellectual disabilities; F32.9 Major depressive disorder, single episode, unspecified; D72.829 Elevated white blood cell count, unspecified; F10.10 Alcohol abuse, uncomplicated; F17.210 Nicotine dependence, cigarettes, uncomplicated; F11.10 Opioid abuse, uncomplicated; F12.20 Cannabis dependence, uncomplicated; F43.10 Post-traumatic stress disorder, unspecified; Z79.899 Other long term (current) drug therapy; Z86.14 Personal history of Methicillin resistant Staphylococcus aureus infection; Z87.19 Personal history of other diseases of the digestive system; Z87.442 Personal history of urinary calculi; Z63.4 Disappearance and death of family member; Z91.013 Allergy to seafood; Z91.041 Radiographic dye allergy status
CPT/HCPCS: 36415; 71045; 76705; 80053; 80074; 80306; 81003; 82075; 82140; 85025; 85379; 85610; 87635; 99285

== ENCOUNTER 2021-08-09 05:43 | Emergency (ER) | payer OTHER ==
[2021-08-09 05:49] VITALS: TEMP 98.1
[2021-08-09] MEDS ORDERED: SODIUM CHLORIDE 0.9% 1,000 ML IV STA (06:14)
[2021-08-09] MEDS ORDERED: diphenhydrAMINE 50 MG/ML 1 ML VIAL IVP STA (06:14)
[2021-08-09] MEDS ORDERED: METOCLOPRAMIDE 5 MG/ML 2 ML VIAL IVP STA (06:14)
--- NOTE | 2021-08-09 06:40 | ED ---
General Adult HPI - General Source: patient Mode of arrival: ambulatory Limitations: no limitations <Dru Woodard - Last Filed: 08/09/21 16:45> <Ernestina Nava - Last Filed: 08/10/21 14:26> - General Chief complaint: Headache Stated complaint: Headache Time Seen by Provider: 08/09/21 06:02 - History of Present Illness Initial comments: 46-year-old male with a past medical history of hypoxic brain injury, remote methamphetamine and heroin use presents to the emergency room for a chief complaint of headache. Patient states she has a left-sided headache. This started yesterday. Describes the pain as sharp in nature. Patient did take an aspirin however it did not seem to help. Patient states he does get headaches from time to time. Patient denies nausea. Patient does admit to of photophobia. Pt denies neck pain or stiffness. Patient denies any other complaints.Patient has no other complaints at this time including shortness of breath, chest pain, abdominal pain, nausea or vomiting, or visual changes. (Dru Woodard) - Related Data Previous Rx's Medication Instructions Recorded Nicotine 14Mg/24Hr Patch [Habitrol] 1 patch TRANSDERM DAILY 30 Days 06/05/21 patch cloNIDine HCL [Catapres] 0.1 mg PO BID 30 Days tab 06/05/21 Ascorbic Acid [Vitamin C] 500 mg PO BID 30 Days #60 tab 07/22/21 FLUoxetine HCL [PROzac] 20 mg PO DAILY 30 Days #30 cap 07/22/21 Zinc Sulfate [Orazinc] 220 mg PO DAILY 30 Days #30 cap 07/22/21 Allergies Allergy/AdvReac Type Severity Reaction Status Date / Time iodine Allergy Nausea & Verified 08/09/21 05:49 Vomiting seafood Allergy Unknown Uncoded 07/16/21 18:08 Review of Systems ROS Other: All systems not noted in ROS Statement are negative. <Dru Woodard - Last Filed: 08/09/21 16:45> ROS Other: All systems not noted in ROS Statement are negative. <Ernestina Nava - Last Filed: 08/10/21 14:26> ROS Statement: Those systems with pertinent positive or pertinent negative responses have been documented in the HPI. Past Medical History Past Medical History: No Reported History Additional Past Medical History / Comment(s): kidney stones, previous meth and heroin History of Any Multi-Drug Resistant Organisms: MRSA Date of last positivie culture/infection: 05/19/16 MDRO Source:: left leg Past Surgical History: Hernia Repair Additional Past Surgical History / Comment(s): lithotripsy Past Anesthesia/Blood Transfusion Reactions: No Reported Reaction Past Psychological History: No Psychological Hx Reported, Anxiety, PTSD Smoking Status: Current every day smoker Past Alcohol Use History: None Reported Past Drug Use History: Marijuana <Dru Woodard - Last Filed: 08/09/21 16:45> General Exam Limitations: no limitations General appearance: alert, in no apparent distress Head exam: Present: atraumatic Eye exam: Present: normal appearance, PERRL, EOMI. Absent: scleral icterus, conjunctival injection ENT exam: Present: normal exam, mucous membranes moist Neck exam: Present: normal inspection, full ROM. Absent: tenderness Respiratory exam: Present: normal lung sounds bilaterally. Absent: respiratory distress, wheezes Cardiovascular Exam: Present: regular rate, normal rhythm, normal heart sounds GI/Abdominal exam: Present: soft, normal bowel sounds. Absent: distended, tenderness Neurological exam: Present: alert <Dru Woodard - Last Filed: 08/09/21 16:45> Course Vital Signs 08/09/21 08/09/21 08/09/21 05:45 06:26 07:30 Temperature 98.1 F Pulse Rate 138 H 106 H 84 Respiratory 18 16 Rate Blood Pressure 119/78 123/87 O2 Sat by Pulse 98 99 Oximetry EKG Findings - EKG Comments: EKG Findings:: Sinus tachycardia, ventricular rate 107, [place] interval 124, QTC 419 <Dru Woodard - Last Filed: 08/09/21 16:45> Medical Decision Making <Dru Woodard - Last Filed: 08/09/21 16:45> <Ernestina Nava - Last Filed: 08/10/21 14:26> - Medical Decision Making Vitals are stable. Patient is well-appearing. CT brain shows no acute intracranial hemorrhage, mass effect, or midline shift. Prior to that Benadryl and Reglan was given. Patient is adamantly requesting discharge. He did agree to a until CAT scan results. Pain is much better. He will return for any worsening symptoms. (Dru Woodard) I was available for consultation in the emergency department. The history and physical exam were done by the midlevel provider. I was consulted for this patients care. I reviewed the case with the midlevel provider and based on their presentation of the patient, I agree with the assessment, medical decision making and plan of care as documented. Chart was dictated using [employer] dictation software. Attempts were made to correct any dictation errors however some typographical errors may persist. (Ernestina Nava) Disposition Is patient prescribed a controlled substance at d/c from ED?: No Time of Disposition: 07:52 <Dru Woodard - Last Filed: 08/09/21 16:45> <Ernestina Nava - Last Filed: 08/10/21 14:26> Clinical Impression: Headache Disposition: HOME SELF-CARE Condition: Good Instructions (If sedation given, give patient instructions): Acute Headache (ED) Additional Instructions: Please follow-up with your doctor. Return to the emergency room for any worsening symptoms. Referrals: Mariano Villa MD [Primary Care Provider] - 1-2 days
[2021-08-09 07:31] VITALS: BP 123/87; PULSE 84; RESP 16
--- NOTE | 2021-08-09 07:37 | CT ---
EXAMINATION TYPE: CT brain wo con DATE OF EXAM: 08/09/2021 COMPARISON: CT brain 08/05/2014 HISTORY: Headache CT DLP: 1035.4 mGycm. Automated Exposure Control for Dose Reduction was Utilized. TECHNIQUE: CT scan of the head is performed without contrast. FINDINGS: There is no acute intracranial hemorrhage, mass effect, or midline shift identified. The ventricles and sulci are within normal limits in size. Cerebellar tonsils in close proximity to the foramen magnum. The globes are intact and the visualized sinuses are clear. IMPRESSION: No acute intracranial hemorrhage, mass effect, or midline shift is seen. For persistent symptoms brain MRI may be of benefit.
[2021-08-09] MEDS ORDERED: KETOROLAC 15 MG/ML 1 ML VIAL IVP STA (07:40)
== END 2021-08-09 08:12 | disposition home or self-care (01) ==
LOC: EC 05:43
DX: R51.9 Headache, unspecified (principal); F41.9 Anxiety disorder, unspecified; F43.12 Post-traumatic stress disorder, chronic; F17.200 Nicotine dependence, unspecified, uncomplicated; F12.90 Cannabis use, unspecified, uncomplicated; Z87.442 Personal history of urinary calculi
CPT/HCPCS: 99284; 96374; 96375 ×2; 96361; 93005; 70450; J1200; J2765; J1885

== ENCOUNTER 2022-02-27 00:25 | Inpatient (IN) | payer MEDICAID, OTHER ==
--- NOTE | 2022-02-27 03:27 | ED ---
Psych HPI - General Chief Complaint: Psychiatric Symptoms Stated Complaint: Mental Health Time Seen by Provider: 02/27/22 03:06 Source: patient, RN notes reviewed, old records reviewed Mode of arrival: ambulatory Limitations: no limitations - History of Present Illness Initial Comments: This is a 46-year-old male who presents today for evaluation of suicidal thoughts and depression. Patient has thoughts to hang himself. Patient does the ER severe and significant thoughts of suicide, planned. Patient has significant speak with mental health as he is scared he may do something MD Complaint: suicidal ideation, feels depressed -: unknown Associated Psychiatric Symptoms: depression, suicidal ideation, racing thoughts History of same: Yes Quality: getting worse Improves With: none Worsens With: none Context: significant life stressor Associated Symptoms: denies other symptoms Treatments Prior to Arrival: placed on mental health hold If Self Harm: admits thoughts of self harm - Related Data Previous Rx's Medication Instructions Recorded Nicotine 14Mg/24Hr Patch [Habitrol] 1 patch TRANSDERM DAILY 30 Days 06/05/21 patch cloNIDine HCL [Catapres] 0.1 mg PO BID 30 Days tab 06/05/21 Ascorbic Acid [Vitamin C] 500 mg PO BID 30 Days #60 tab 07/22/21 FLUoxetine HCL [PROzac] 20 mg PO DAILY 30 Days #30 cap 07/22/21 Zinc Sulfate [Orazinc] 220 mg PO DAILY 30 Days #30 cap 07/22/21 Allergies Allergy/AdvReac Type Severity Reaction Status Date / Time iodine Allergy Nausea & Verified 02/27/22 00:34 Vomiting seafood Allergy Unknown Uncoded 02/27/22 00:34 Review of Systems ROS Statement: Those systems with pertinent positive or pertinent negative responses have been documented in the HPI. ROS Other: All systems not noted in ROS Statement are negative. Past Medical History Past Medical History: No Reported History Additional Past Medical History / Comment(s): kidney stones, previous meth and heroin, hepattits B History of Any Multi-Drug Resistant Organisms: MRSA Date of last positivie culture/infection: 05/19/16 MDRO Source:: left leg Past Surgical History: Hernia Repair Additional Past Surgical History / Comment(s): lithotripsy Past Anesthesia/Blood Transfusion Reactions: No Reported Reaction Past Psychological History: No Psychological Hx Reported, Anxiety, PTSD Smoking Status: Current every day smoker Past Alcohol Use History: None Reported Past Drug Use History: Marijuana General Exam Limitations: no limitations General appearance: alert, in no apparent distress Head exam: Present: atraumatic, normocephalic, normal inspection Eye exam: Present: normal appearance, PERRL, EOMI. Absent: scleral icterus, conjunctival injection, periorbital swelling ENT exam: Present: normal exam, mucous membranes moist Neck exam: Present: normal inspection. Absent: tenderness, meningismus, lymphadenopathy Respiratory exam: Present: normal lung sounds bilaterally. Absent: respiratory distress, wheezes, rales, rhonchi, stridor Cardiovascular Exam: Present: regular rate, normal rhythm, normal heart sounds. Absent: systolic murmur, diastolic murmur, rubs, gallop, clicks GI/Abdominal exam: Present: soft, normal bowel sounds. Absent: distended, tenderness, guarding, rebound, rigid Extremities exam: Present: normal inspection, full ROM, normal capillary refill. Absent: tenderness, pedal edema, joint swelling, calf tenderness Back exam: Present: normal inspection Neurological exam: Present: alert, oriented X3, CN II-XII intact Psychiatric exam: Present: normal affect, normal mood Skin exam: Present: warm, dry, intact, normal color. Absent: rash Course Vital Signs 02/27/22 00:30 Temperature 97.9 F Pulse Rate 107 H Respiratory 22 Rate Blood Pressure 111/81 O2 Sat by Pulse 98 Oximetry - Reevaluation(s) Reevaluation #1: 02/27/22 05:02 Medical records reviewed Reevaluation #2: 02/27/22 05:02 Medical clear for psychiatric evaluation Medical Decision Making - Medical Decision Making 46 mailed be admitted for psychiatric evaluation and treatment suicidal thoughts with plans to hang himself Disposition Clinical Impression: Acute anxiety, Generalized anxiety disorder, Major depressive disorder, recurrent severe without psychotic features, Suicidal ideation, PTSD (post-tra umatic stress disorder) Disposition: TRANSFER TO PSYCH HOSP/UNIT Condition: Fair Is patient prescribed a controlled substance at d/c from ED?: No Referrals: Mariano Villa MD [Primary Care Provider] - 1-2 days
[2022-02-27] MEDS ORDERED: HALOPERIDOL LACTATE 5 MG/ML 1 ML VIAL IM PRN (06:16)
[2022-02-27] MEDS ORDERED: MAG HYDROX/AL HYDROX/SIMETH 30 ML CUP PO PRN (06:16)
[2022-02-27] MEDS ORDERED: LORazepam 1 MG TAB PO PRN (06:16)
[2022-02-27] MEDS ORDERED: ACETAMINOPHEN TAB 325 MG TAB PO PRN (06:16)
[2022-02-27] MEDS ORDERED: MAGNESIUM HYDROXIDE 2,400 MG/10 ML CUP PO PRN (06:16)
[2022-02-27] MEDS ORDERED: LORazepam 2 MG/ML INJ IM PRN (06:21)
[2022-02-27] MEDS ORDERED: haloperidoL 5 MG TAB PO PRN (06:22)
[2022-02-27] MEDS: LITHIUM CARBONATE 300 MG CAP PO SCH ×2 (08:52→20:53)
[2022-02-27] MEDS: NICOTINE 14MG/24HR PATCH TRANSDERM SCH (08:52)
[2022-02-27] MEDS: OLANZapine 10 MG TAB PO SCH (08:52)
[2022-02-27] MEDS ORDERED: FLUoxetine HCL 20 MG CAP PO SCH (09:00)
--- NOTE | 2022-02-27 11:32 | P.HP ---
Psychiatric H&P - . H&P Date: 02/27/22 History & Physical: Allergies Allergy/AdvReac Type Severity Reaction Status Date / Time iodine Allergy Nausea & Verified 02/27/22 06:54 Vomiting seafood Allergy Unknown Uncoded 02/27/22 06:25 Vital Signs Temp 97.7 F 02/27/22 06:36 Pulse 80 02/27/22 06:36 Resp 15 02/27/22 06:36 BP 127/68 02/27/22 06:36 Pulse Ox 96 02/27/22 06:36 Intake & Output 02/26/22 02/27/22 02/27/22 18:59 06:59 18:59 Weight 58.967 kg 59.959 kg Laboratory Last Values [place] <0.2 mmol/L 02/27/22 07:13 Coronavirus (PCR) Not Detected (Not Detectd) 02/27/22 05:02 02/27/22 11:31 IDENTIFYING DATA: Patient is a , unemployed, 46-year-old male who presented to the hospital for suicidal ideation with a plan to hang himself. HPI: Patient presented to the hospital on 02/27/2022, brought into the hospital on his own volition for suicidal ideation with a plan to hang himself. The patient reported to the EPS nurse that he wanted to kill himself to be with his girlfriend who on 07/06/2021 by overdose. The patient signed himself voluntarily on to the psychiatric unit. Upon evaluation the psychiatric unit, the patient reports that he was recently released from long term after doing 7 months for assaulting a commissioned police officer. He was discharged from long term on 02/10/2022. He reports that upon returning home, he felt extremely depressed. He states that this was the home that he shared with his girlfriend Addis who and that he found pictures of them together. He reports that for the past few weeks he has been feeling incr easingly depressed and suicidal. He does endorse significant symptoms of depression including hopelessness, helplessness, anhedonia, low appetite, and difficulty with sleep. He reports that he did tie a noose. He does admit to multiple prior attempts at suicide in the past. In regards to bipolar symptoms, the patient denies any manic symptoms. He denies any increased goal-directed activity, mood lability, or increased periods of energy. The patient reports no auditory or visual hallucinations. He denies any paranoia or other delusions. In regards to substance use, the patient does have a significant history of marijuana and methamphetamine abuse. The patient states that he has not used methamphetamines over the past year however did test positive for methamphetamines in May 2021. PAST PSYCHIATRIC HISTORY: Patient has previous diagnoses of major depressive disorder, posttraumatic stress disorder, methamphetamine use disorder, cannabis use disorder, and history of opioid use disorder. The patient's home medications include clonidine, Zyprexa, lithium, and Prozac. The patient has had numerous psychiatric hospitalizations with the last time being this past May 2021. The patient is open with [facility]. Patient reports multiple attempts at suicide in the past. PMH: Past Medical History: No Reported History Additional Past Medical History / Comment(s): kidney stones, previous meth and heroin, hepattits B History of Any Multi-Drug Resistant Organisms: MRSA Date of last positivie culture/infection: 05/19/16 MDRO Source:: left leg Past Surgical History: Hernia Repair Additional Past Surgical History / Comment(s): lithotripsy Past Anesthesia/Blood Transfusion Reactions: No Reported Reaction Past Psychological History: No Psychological Hx Reported, Anxiety, PTSD Smoking Status: Current every day smoker Past Alcohol Use History: None Reported Past Drug Use History: Marijuana ALLERGIES: Iodine, seafood CHEMICAL DEPENDENCY HISTORY: Patient reports a half pack per day of tobacco use. He reports daily marijuana use. He states that he has not used methamphetamines over a year but has significant history of methamphetamine abuse as well as opiate use disorder FAMILY PSYCHIATRIC/SUBSTANCE USE HISTORY: As per previous admission - The patie nt suspects that his mother had mental illness and has previously attempted suicide. No completed suicides in the family. The patient's maternal grandfather, whom he lives with previously, was known to have an alcohol use problem. SOCIAL HISTORY: Patient was born and raised in [place], [place]. The patient is since February 2017. His partner whom he was with for 1 year in June 2021 by overdose. The patient has 5 children and 5 grandchildren. He was recently incarcerated for assaulting a commissioned police officer and was discharged from long term after a seven-month stay earlier this month. He has a 12th grade education. He denies any special education. He reports that he is [employer]. MENTAL STATUS EXAM: General Appearance: Patient appears to be stated age is alert, directable, and attempts to cooperate. Patient appears to have poor hygiene and grooming. He has multiple tattoos. He is a very thin and short build. Behavior: Patient is seated without any agitated behavior. Eye contact is appropriate. Patient rocks back and forth throughout the interview. Patient is tearful. Speech: Patient's speech is fluent and nonpressured. Spontaneous. Mood/Affect: Patient reports their mood is depressed, affect is congruent and tearful. Suicidality/Homicidality: Patient endorses suicidal ideation. He denies any homicidal ideation. Perceptions: Patient denies any visual hallucinations and denies any auditory hallucinations Though content/process: There is no evidence of any delusional thought content and thought process is linear and goal-directed. Memory and concentration: AOX3, grossly intact for the purposes of this session. Can spell "WORLD" backwards Judgment and insight: Fair STRENGTHS/WEAKNESSES: Strengths the patient is resilient. Weakness is that the patient engages in polysubstance abuse and has had multiple attempts at suicide in the past. INTELLECT: average IMPRESSIONS: Major depressive disorder, recurrent, severe, without psychotic features Posttraumatic stress disorder Cannabis use disorder Nicotine dependence History of opiate use disorder History of methamphetamine use disorder PLAN: -Patient is admitted under voluntary status to [facility] for stabilization of psychiatric symptoms and safety. Patient signed adult voluntary form and medication consent and is placed in patient's chart. -Medications : Will start patient on We will increase Prozac to 30 mg by mouth daily for depression/PTSD Continue lithium 300 mg by mouth twice a day for mood stabilization/suicidality Continue Zyprexa 10 mg by mouth daily for mood stabilization/augmentation -Ativan and Haldol PRN for agitation/aggression -Patient was counselled on substance abuse and desired to cut back on use -Patient was informed of the risks, benefits and side effects of the medication and patient verbally consented to taking the medications. Patient signed med consent form and was placed in chart. -Internal Medicine consult to perform medical evaluation and physical. -NRT - nicotine patch -SW on board for discharge planning. Encourage patient to participate in groups to work on coping skills. 02/27/22 11:32 02/27/22 11:32
--- NOTE | 2022-02-27 14:38 | P.MDCNMH ---
History of Present Illness H&P Date: 02/27/22 This is a 46-year-old male who presented to the emergency department last night with suicidal thoughts and depression and thoughts of wanting to hang himself and was evaluated in the ER and admitted to the mental health unit for further evaluation. Patient denies a past medical history except for kidney stones, previous meth and heroin use and hepatitis B. Patient was tested for Covid which was negative and sent to psychiatry for further evaluation. Patient reports to being sober from meth and heroin for 2 years. Patient does admit to smoking approximately 1 pack per day and does admit to smoking marijuana daily. Patient reports to normally following with [facility] for any medications he may need. Patient denies being vaccinated for Covid and reports to having Covid sometime last year. Patient was not hospitalized for this. Patient currently denies any chest pain, shortness of breath, or palpitations. Patient is afebrile. No reports of nausea or vomiting and has been tolerating diet. Patient reports that he lives at home and does not currently have a job. Patient reports that his primary care provider is Dr. Villa although reports he has not seen him in quite some time. 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 Review Of Systems: Constitutional: No fever, no chills, no night sweats. No weight change. No weakness, fatigue or lethargy. No daytime sleepiness. EENT: No headache. No blurred vision or double vision, no loss of vision. No loss of Hearing, no ringing in the ears, no dizziness. No nasal drainage or congestion. No epistaxis. No sore throat. Lungs: No shortness of breath, cough, no sputum production. No wheezing. Cardiovascular: No chest pain, no lower extremity edema. No palpitations. No paroxysmal nocturnal dyspnea. No orthopnea. No lightheadedness or dizziness. No syncopal episodes. Abdominal: No abdominal pain. No nausea, vomiting. No diarrhea. No constipation. No bloody or tarry stools.. No loss of appetite. Genitourinary: No dysuria, increased frequency, urgency. No urinary retention. Musculoskeletal: No myalgias. No muscle weakness, no gait dysfunction, no frequent falls. No back pain. No neck pain. Integumentary: No wounds, no lesions. No rash or pruritus. No unusual bruising. No change in hair or nails. Neurologic: No aphasia. No facial droop. No change in mentation. No head injury. No headache. No paralysis. No paresthesia. Psychiatric: Reports depression. Reports anxiety. No mood swings. Reports feelings of suicide with possible plan of hanging himself Endocrine: No abnormal blood sugars. No weight change. No excessive sweating or thirst. No cold intolerance. PHYSICAL EXAMINATION: GENERAL: The patient is alert and oriented x4, Well developed, well nourished. Thin built appears older than stated age HEENT: Pupils are round and equally reacting to light. EOMI. no scleral icterus. No conjunctival pallor. Normocephalic, atraumatic. No pharyngeal erythema. No thyromegaly. CARDIOVASCULAR: S1 and S2 muffled with no murmur noted PULMONARY: Clear to auscultation with no wheezing or rhonchi noted. ABDOMEN: soft. Nontender on exam. obese. non-distended, normoactive bowel sounds. No palpable organomegaly. MUSCULOSKELETAL: No joint swelling or deformity. EXTREMITIES: No cyanosis, clubbing, or pedal edema. NEUROLOGICAL: Gross neurological examination did not reveal any focal deficits. SKIN: No rashes. Assessment: Depression/major depressive disorder, recurrent Suicidal ideation with a plan Continued ongoing nicotine abuse Daily THC use History of methamphetamine abuse Full code Plan: Recommend to continue with current management per psychiatric services. Patient has been admitted to the inpatient psychiatric unit for further evaluation for depression and suicidal ideation. Patient currently follows with Dr. Villa although was recently incarcerated and recently discharged and usually follows with [facility]. Encourage the patient to participate in groups and medication compliance. Patient does report to smoking approximately 1 pack per day and recommend nicotine patch. Encourage the patient to follow-up with primary care provider once discharged from psychiatric services and continue to follow with [facility]. The impression and plan of care has been dictated by Tammy Smith, nurse practitioner as directed. MD Evan I have performed a history and examination and MDM of this patient, discussed the same with the dictator, and agree with the dictator's assessment and plan as written ,documented as a scribe. Based on total visit time, I have performed more than 50% of the visit. Any additional findings or plans will be noted. Past Medical History Past Medical History: No Reported History Additional Past Medical History / Comment(s): kidney stones, previous meth and heroin, hepatitis B History of Any Multi-Drug Resistant Organisms: MRSA Date of last positivie culture/infection: 05/19/16 MDRO Source:: left leg Past Surgical History: Hernia Repair Additional Past Surgical History / Comment(s): lithotripsy Past Anesthesia/Blood Transfusion Reactions: No Reported Reaction Past Psychological History: No Psychological Hx Reported, Anxiety, PTSD Smoking Status: Current every day smoker Past Alcohol Use History: None Reported Past Drug Use History: Marijuana Additional Drug Use History / Comment(s): Pt states he's been off meth "almost a year" and heroin for 2 years. Sober from alcohol for 20 years. Medications and Allergies Home Medications Medication Instructions Recorded Confirmed Type cloNIDine HCL [Catapres] 0.1 mg PO BID 30 Days tab 06/05/21 02/27/22 Rx FLUoxetine HCL [PROzac] 20 mg PO DAILY 30 Days #30 cap 07/22/21 02/27/22 Rx [place] Carbonate 300 mg PO BID 02/27/22 02/27/22 History OLANZapine 10 mg PO HS 02/27/22 02/27/22 History Omeprazole 20 mg PO DAILY 02/27/22 02/27/22 History Allergies Allergy/AdvReac Type Severity Reaction Status Date / Time iodine Allergy Nausea & Verified 02/27/22 06:54 Vomiting seafood Allergy Unknown Uncoded 02/27/22 06:25 Physical Exam Vitals: Vital Signs Temp Pulse Pulse Resp BP BP Pulse Ox 02/27/22 06:36 97.7 F 80 15 127/68 96 02/27/22 06:29 98 F 88 20 112/78 97 02/27/22 00:30 97.9 F 107 H 22 111/81 98 Intake and Output 02/26/22 02/27/22 02/27/22 22:59 06:59 14:59 Other: Weight 58.967 kg 59.959 kg Cranial Nerve Examination - Cranial Nerves Cranial Nerve I- Olfactory: Intact Cranial Nerve II- Optic: Intact Cranial Nerve III- Oculomotor: Intact Cranial Nerve IV- Trochlear: Intact Cranial Nerve V- Trigeminal: Intact Cranial Nerve - Abducens: Intact Cranial Nerve VII- Facial: Intact Cranial Nerve VIII- Auditory: Intact Cranial Nerve IX- Glossopharyngeal: Intact Cranial Nerve X- Vagus: Intact Cranial Nerve XI- Accessory: Intact Cranial Nerve XII- Hypoglossal: Intact
[2022-02-28] MEDS: LITHIUM CARBONATE 300 MG CAP PO SCH ×2 (10:00→21:18)
[2022-02-28] MEDS: FLUoxetine HCL 10 MG CAP PO SCH (10:00)
[2022-02-28] MEDS: NICOTINE 14MG/24HR PATCH TRANSDERM SCH (10:01)
[2022-02-28] MEDS: OLANZapine 10 MG TAB PO SCH (10:01)
[2022-02-28 11:13] LABS: Basophils # (A) 0.1 k/uL (0-0.2); Basophils % (A) 1 %; Eosinophils # (A) 0.2 k/uL (0-0.7); Eosinophils % (A) 3 %; HCT 50.9 % (39.0-53.0); HGB 16.1 gm/dL (13.0-17.5); Lymphocytes # (A) 2.7 k/uL (1.0-4.8); Lymphocytes % (A) 33 %; MCH 31.4 pg (25.0-35.0); MCHC 31.7 g/dL (31.0-37.0); Mean Platelet Volume 6.8; Monocytes # (A) 0.5 k/uL (0-1.0); Monocytes % (A) 7 %; Neutrophils # (A) 4.2 k/uL (1.3-7.7); Neutrophils % (A) 53 %; Platelet Count 386 k/uL (150-450); RBC 5.14 m/uL (4.30-5.90); RDW 12.7 % (11.5-15.5)
[2022-02-28 11:22] LABS: ALT 126 U/L (4-49); AST 92 U/L (17-59); African American GFR (CKD) >90 (>60 ml/min/1.73 sqM); Alkaline Phosphatase 114 U/L (38-126); Anion Gap 6 mmol/L; Blood Urea Nitrogen 15 mg/dL (9-20); Calcium 9.2 mg/dL (8.4-10.2); Carbon Dioxide 23 mmol/L (22-30); Chloride 111 mmol/L (98-107); Glucose 95 mg/dL (74-99); Non-African American GFR(CKD) >90 (>60 ml/min/1.73 sqM); Potassium 4.3 mmol/L (3.5-5.1); Sodium 140 mmol/L (137-145); Total Bilirubin 0.3 mg/dL (0.2-1.3); Total Protein 7.1 g/dL (6.3-8.2)
--- NOTE | 2022-02-28 13:48 | P.PN ---
Progress Note - Text Progress Note Date: 02/28/22 Clinical Problems: Major depressive disorder recurrent severe without psychotic features, posttraumatic stress disorder, cannabis use disorder, tobacco use, history of opiate use disorder, history of methamphetamine use disorder Interim history: I reviewed the medical record and interviewed the patient. He complained of continued sadness hopelessness and helplessness. However, he denied that he is currently experiencing suicidal thoughts or ideation. He continues have low energy. He feels that his sleep has improved. He denies experiencing auditory or visual hallucinations or other symptoms of psychosis. He denied side effects to his current psychotropic medications. Medical consult appreciated. Mental status exam: He presented as a short casually groomed male with multiple tattoos. He made eye contact and appeared to attend to the interview. He had a sad facial expression. He showed psychomotor retardation. His speech was slow and soft monotone. His full is depressed and not reactive. He denied suicidal ideation, wishes homicidal ideation. He denied feeling hopeless. He did not express ideas reference, paranoid ideation or delusions. His thinking was concrete but his associations were coherent, logical directed. He denied hallucinations did not appear to be responding to internal stimuli. Assessment: Patient continues to meet the criteria for inpatient psychiatric admission for symptom stabilization and safety Plan: Continue inpatient treatment. Safety precautions. Continue current medications. Encourage participation in therapeutic groups and activities. Evaluate clinical status and response to treatment daily basis.
[2022-02-28 17:01] LABS: Chol/HDL Ratio 4.46 Ratio; LDL Cholesterol,Calculated 120.9 mg/dL (0.0-131.0)
[2022-03-01 06:51] VITALS: BP 134/59; PULSE 62; RESP 16; TEMP 98.1
[2022-03-01] MEDS: NICOTINE 14MG/24HR PATCH TRANSDERM SCH (10:24)
[2022-03-01] MEDS: LITHIUM CARBONATE 300 MG CAP PO SCH ×2 (10:25→20:52)
[2022-03-01] MEDS: OLANZapine 10 MG TAB PO SCH (10:25)
[2022-03-01] MEDS: FLUoxetine HCL 10 MG CAP PO SCH (10:25)
[2022-03-01] MEDS ORDERED: TEMAZEPAM 15 MG CAP PO PRN (15:59)
--- NOTE | 2022-03-01 16:16 | P.PN ---
Progress Note - Text Progress Note Date: 03/01/22 Clinical Problems: Major depressive disorder recurrent severe without psychotic features, posttraumatic stress disorder, cannabis use disorder, tobacco use, history of opiate use disorder, history of methamphetamine use disorder Interim history: I reviewed the medical record and interviewed the patient. He complained of continued feelings sadness hopelessness and helplessness. However, he denied suicidal thoughts or ideation. He continues have low energy. He was unable to fall asleep yesterday. He denied experiencing auditory or visual hallucinations or other symptoms of psychosis. He denied side effects to his current psychotropic medications. He has not had no management problems or displayed behavioral dyscontrol. He seldom participates in therapeutic groups and activities. He spends his time alone in the coming out for medications or meals. Mental status exam: He presented as a short casually groomed male with multiple tattoos. He made eye contact and appeared to attend to the interview. He had a sad facial expression. He showed psychomotor retardation. His speech was slow and soft monotone. His full is depressed and not reactive. He denied suicidal ideation, wishes homicidal ideation. He denied feeling hopeless. He did not express ideas reference, paranoid ideation or delusions. His thinking was concrete but his associations were coherent, logical directed. He denied hallucinations did not appear to be responding to internal stimuli. Assessment: Patient continues to meet the criteria for inpatient psychiatric admission for symptom stabilization and safety Plan: Continue inpatient treatment. Safety precautions. Temazepam 15 mg at bedtime when necessary for sleep. Continue other psychotropic medications. Encourage participation in therapeutic groups and activities. Evaluate clinical status and response to treatment daily basis.
[2022-03-02] MEDS: NICOTINE 14MG/24HR PATCH TRANSDERM SCH (08:25)
[2022-03-02] MEDS: FLUoxetine HCL 10 MG CAP PO SCH (08:26)
[2022-03-02] MEDS: LITHIUM CARBONATE 300 MG CAP PO SCH (08:26)
[2022-03-02] MEDS: OLANZapine 10 MG TAB PO SCH (08:26)
--- NOTE | 2022-03-02 13:10 | P.DS ---
Providers Date of admission: 02/27/22 06:11 Expected date of discharge: 03/02/22 Attending physician: Ang Miller MD Consults: 02/27/22 06:16 Consult Physician Routine Consulting Provider: Kodi Cristina Consult Reason/Comments: For H & P for Medical Follow Up Do you want consulting provider notified?: Yes, Notify in am Primary care physician: Daisy Lawsonbal - Discharge Diagnosis(es) (1) Major depressive disorder, recurrent severe without psychotic features Current Visit: Yes Status: Acute Priority: High (2) PTSD (post-traumatic stress disorder) Current Visit: Yes Status: Chronic Priority: Medium (3) Nicotine dependence Current Visit: Yes Status: Chronic Priority: Medium (4) Cannabis use disorder, moderate, dependence Current Visit: Yes Status: Chronic Priority: Medium (5) Methamphetamine use disorder, severe, in sustained remission Current Visit: No Status: Chronic Priority: Medium Hospital Course: [address] [address] Progress Note - Text Patient Name: Forest Durham Date of : 77 Patient Status: Inpatient Attending Provider: Ang Miller Date: 03/02/22 13:07 Initialization Date: 03/02/22 13:07 Progress Note - Text Progress Note Date: 03/02/22 Admission HPI: Patient is a , unemployed, 46-year-old male who presented to the hospital for suicidal ideation with a plan to hang himself. Patient presented to the hospital on 02/27/2022, brought into the hospital on his own volition for suicidal ideation with a plan to hang himself. The patient reported to the EPS nurse that he wanted to kill himself to be with his girlfriend who on 07/06/2021 by overdose. The patient signed himself voluntarily on to the psychiatric unit. 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 He was discharged from [facility] on 02/10/2022. He reports that upon returning home, he felt extremely depressed. He states that this was the home that he shared with his girlfriend Addis who and that he found pictures of them together. He reports that for the past few weeks he has been feeling increasingly depressed and suicidal. He does endorse significant symptoms of depression including hopelessness, helplessness, anhedonia, low appetite, and difficulty with sleep. He reports that he did tie a noose. He does admit to multiple prior attempts at suicide in the past. In regards to bipolar symptoms, the patient denies any manic symptoms. He denies any increased goal-directed activity, mood lability, or increased periods of energy. The patient reports no auditory or visual hallucinations. He denies any paranoia or other delusions. In regards to substance use, the patient does have a significant history of marijuana and methamphetamine abuse. The patient states that he has not used me thamphetamines over the past year however did test positive for methamphetamines in May 2021. Patient has previous diagnoses of major depressive disorder, posttraumatic stress disorder, methamphetamine use disorder, cannabis use disorder, and history of opioid use disorder. The patient's home medications include clonidine, Zyprexa, lithium, and Prozac. The patient has had numerous psychiatric hospitalizations with the last time being this past May 2021. The patient is open with [facility]. Patient reports multiple attempts at suicide in the past. Hospital course: Upon admission to the unit patient was initially endorsing significant symptoms of depression and suicidal ideation. Patient was however directable and agreeable to commence treatment. Patient got along well with other patients on the unit and followed unit protocol. Patient was compliant with the medications and denied any side effects throughout hospital course. Patient was started on Prozac, lithium, and Zyprexa for management of depressive disorder with psychotic features and PTSD. Patient spoke of his stressors and engaged in therapy both group and individual. Patient was also seen by medical team for history and physical exam. Or the course of the hospitalization, the patient displayed significant improvement in regards her target symptoms of depression and suicidal ideation. The patient also has significant improvement in regards to psychotic symptoms. On day of discharge, the patient is not reporting any suicidal or homicidal ideation, intention, and/or plan. He is denying any auditory or visual hallucinations. He denies any access to firearms or other weapons. The patient reports no issues regarding his sleep or his appetite. The patient denies any access to firearms or other weapons. He reports no paranoia or other delusions. The patient was counseled at length on the importance of medication adherence and appropriate outpatient follow-up. Also discussed at length safety planning and utilization of crisis numbers. The patient does have a significant history of substance abuse however was counseled on abstaining from substances including alcohol, marijuana, and methamphetami josh. Prior to discharge, a family meeting was set up by the social psychologist to answer any questions and ensure safety. Mental status exam: General Appearance: Patient appears to be stated age is alert, pleasant, and cooperative. Patient is in no acute distress and has fair hygiene and grooming. Behavior: Patient is calmly seated without any agitated behavior. Eye contact is appropriate. Speech: Patient's speech is fluent and nonpressured. Mood/Affect: Patient reports their mood is "much better", affect is congruent and euthymic to bright. Suicidality/Homicidality: Patient denies having any suicidal or homicidal ideation intent or plan. Perceptions: Patient denies any auditory or visual hallucinations. Though content/process: There is no evidence of any delusional thought content and thought process is linear and goal-directed. The patient is future oriented. Memory and concentration: AOX3, grossly intact for the purposes of this session. Can spell "WORLD" backwards correctly. Judgment and insight: Improved with guarded prognosis Vital Signs Temp 98.1 F 03/01/22 06:50 Pulse 62 03/01/22 06:50 Resp 16 03/01/22 06:50 BP 134/59 03/01/22 06:50 Pulse Ox 100 02/28/22 06:39 FiO2 Intake & Output 03/01/22 03/02/22 03/02/22 18:59 06:59 18:59 Weight 60.2 kg Impression: Major depressive disorder, recurrent, severe, without psychotic features Posttraumatic stress disorder Cannabis use disorder Nicotine dependence Methamphetamine use disorder, sustained remission Plan: -Continue with discharge today as patient has improved and stabilized psychiatrically and is not currently an imminent threat to himself and/or others. Patient will remain at chronically elevated risk for harm to self and/or others due to his impulsivity and polysubstance abuse. -Continue medications: [place] 300 mg by mouth twice a day for mood stabilization and suicidality Prozac 30 mg by mouth daily for depression Zyprexa 10 mg by mouth daily for mood stabilization/bipolar depression -Patient was counseled on the need for medication compliance and appropriate follow-up at mental health and also primary care for medical issues. Patient verbalized understanding and agreed. -Social work to arrange for and conduct family meeting to ensure safety upon discharge and answer any questions/concerns. Social work also to arrange for patients follow up appointments with [facility] for psychiatric care along with follow up with primary care provider. -Patient counseled on abstaining from recreational drugs and marijuana and alcohol. Was informed/educated on the adverse effects on their physical and mental health. Patient verbally agreed and understood. Patient was offered substance abuse treatment however declined at this time. -Patient was instructed to return to the hospital or seek immediate medical care if their psychiatric or medical symptoms do worsen or reoccur. -Psychoeducation and supportive therapy provided to patient. Risks and benefits of pharmacological treatment versus the risks and benefits of nontreatment weight and discussed. Informed consent discussion held. Common side effects of psychotropics discussed such as, but not limited to headache, GI disturbance, sexual dysfunction, movement disorders, sedation, and orthostatic hypotension. Life threatening and blackbox warnings of prescribed medications also discussed. Potential risks of operating a vehicle or heavy machinery discussed with patient at length. Advised on importance of compliance and a reliable and responsible manner. Patient advised to review FDA consumer labeling of all medications prior to taking. Patient verbalized understanding of potential risks, and agrees with current treatment plan. Patient advised to medically contact physician/emergency personnel if any acute changes in condition occur. Laboratory Results WBC 8.0 k/uL (3.8-10.6) 02/28/22 10:06 RBC 5.14 m/uL (4.30-5.90) 02/28/22 10:06 Hgb 16.1 gm/dL (13.0-17.5) 02/28/22 10:06 Hct 50.9 % (39.0-53.0) 02/28/22 10:06 MCV 99.0 fL (80.0-100.0) 02/28/22 10:06 MCH 31.4 pg (25.0-35.0) 02/28/22 10:06 MCHC 31.7 g/dL (31.0-37.0) 02/28/22 10:06 RDW 12.7 % (11.5-15.5) 02/28/22 10:06 Plt Count 386 k/uL (150-450) 02/28/22 10:06 MPV 6.8 02/28/22 10:06 Neutrophils % 53 % 02/28/22 10:06 Lymphocytes % 33 % 02/28/22 10:06 Monocytes % 7 % 02/28/22 10:06 Eosinophils % 3 % 02/28/22 10:06 Basophils % 1 % 02/28/22 10:06 Neutrophils # 4.2 k/uL (1.3-7.7) 02/28/22 10:06 Lymphocytes # 2.7 k/uL (1.0-4.8) 02/28/22 10:06 Monocytes # 0.5 k/uL (0-1.0) 02/28/22 10:06 Eosinophils # 0.2 k/uL (0-0.7) 02/28/22 10:06 Basophils # 0.1 k/uL (0-0.2) 02/28/22 10:06 Sodium 140 mmol/L (137-145) 02/28/22 10:06 Potassium 4.3 mmol/L (3.5-5.1) 02/28/22 10:06 Chloride 111 mmol/L (98-107) H 02/28/22 10:06 Carbon Dioxide 23 mmol/L (22-30) 02/28/22 10:06 Anion Gap 6 mmol/L 02/28/22 10:06 BUN 15 mg/dL (9-20) 02/28/22 10:06 Creatinine 0.74 mg/dL (0.66-1.25) 02/28/22 10:06 Est GFR (CKD-EPI)AfAm >90 (>60 ml/min/1.73 sqM) 02/28/22 10:06 Est GFR (CKD-EPI)NonAf >90 (>60 ml/min/1.73 sqM) 02/28/22 10:06 Glucose 95 mg/dL (74-99) 02/28/22 10:[address] Glu mg/dL 105 02/28/22 10:06 Hemoglobin A1c 5.3 % (0.0-6.0) 02/28/22 10:06 Calcium 9.2 mg/dL (8.4-10.2) 02/28/22 10:06 Total Bilirubin 0.3 mg/dL (0.2-1.3) 02/28/22 10:06 AST 92 U/L (17-59) H 02/28/22 10:06 ALT 126 U/L (4-49) H 02/28/22 10:06 Alkaline Phosphatase 114 U/L (38-126) 02/28/22 10:06 Total Protein 7.1 g/dL (6.3-8.2) 02/28/22 10:06 Albumin 4.0 g/dL (3.5-5.0) 02/28/22 10:06 Triglycerides 183.00 mg/dL (0.00-149.00) H 02/28/22 10:06 Cholesterol 203.00 mg/dL (0.00-200.00) H 02/28/22 10:06 LDL Cholesterol, Calc 120.9 mg/dL (0.0-131.0) 02/28/22 10:06 VLDL Cholesterol, Calc 36.60 mg/dL (5.00-40.00) 02/28/22 10:06 HDL Cholesterol 45.50 mg/dL (40.00-60.00) 02/28/22 10:06 Cholesterol/HDL Ratio 4.46 Ratio 02/28/22 10:06 TSH 0.488 mIU/L (0.465-4.680) 02/28/22 10:06 [place] <0.2 mmol/L 02/27/22 07:13 Coronavirus (PCR) Not Detected (Not Detectd) 02/27/22 05:02 Allergies Allergy/AdvReac Type Severity Reaction Status Date / Time iodine Allergy Nausea & Verified 02/27/22 06:54 Vomiting seafood Allergy Unknown Uncoded 02/27/22 06:25 Patient Condition at Discharge: Stable Plan - Discharge Summary New Discharge Prescriptions: [place] Carbonate 300 mg PO BID 30 Days cap Nicotine 14Mg/24Hr Patch [Habitrol] 1 patch TRANSDERM DAILY 30 Days patch FLUoxetine HCL [PROzac] 30 mg PO DAILY 30 Days cap OLANZapine [ZyPREXA] 10 mg PO DAILY 30 Days tab Discontinued OLANZapine 10 mg PO HS cloNIDine HCL [Catapres] 0.1 mg PO BID 30 Days tab FLUoxetine HCL [PROzac] 20 mg PO DAILY 30 Days #30 cap [place] Carbonate 300 mg PO BID Omeprazole 20 mg PO DAILY Discharge Medication List FLUoxetine HCL [PROzac] 30 mg PO DAILY 30 Days cap 03/02/22 [Rx] [place] Carbonate 300 mg PO BID 30 Days cap 03/02/22 [Rx] Nicotine 14Mg/24Hr Patch [Habitrol] 1 patch TRANSDERM DAILY 30 Days patch 03/02/22 [Rx] OLANZapine [ZyPREXA] 10 mg PO DAILY 30 Days tab 03/02/22 [Rx] Follow up Appointment(s)/Referral(s): [facility] [Outside] - 03/06/22 9:30 am (03/06/22 @ 9:30am- [facility] Intake at [facility]) Mariano Villa MD [Primary Care Provider] - 1-2 days Patient Instructions/Handouts: How to Stop Smoking (DC), Depression (DC), Methamphetamine Abuse (DC), Anxiety (ED) Activity/Diet/Wound Care/Special Instructions: Activity and diet as tolerated. Avoid the use of street drugs and alcohol. Take all medications as prescribed. When you are in need of refills on your medications please contact your medical provider and/or outpatient psychiatrist to have this done. Please go to scheduled outpatient appointment for aftercare treatment. If symptoms return or become worse, call the crisis line at and/or go to the nearest emergency room for evaluation Discharge Disposition: HOME SELF-CARE
== END 2022-03-02 13:13 | disposition home or self-care (01) | DRG 885 ==
LOC: EC 00:25 → 3MHU 06:11
PROVIDERS: ADMIT Psychiatry & Neurology Psychiatry; ATTEND Psychiatry & Neurology Psychiatry
DX: F33.2 Major depressive disorder, recurrent severe without psychotic features (principal); R45.851 Suicidal ideations; F43.10 Post-traumatic stress disorder, unspecified; F17.200 Nicotine dependence, unspecified, uncomplicated; F12.20 Cannabis dependence, uncomplicated; F15.21 Other stimulant dependence, in remission; F31.30 Bipolar disorder, current episode depressed, mild or moderate severity, unspecified; F41.1 Generalized anxiety disorder; Z79.899 Other long term (current) drug therapy; Z87.442 Personal history of urinary calculi; Z20.822 Contact with and (suspected) exposure to COVID-19
CPT/HCPCS: 80053; 80061; 80178; 82075; 83036; 84443; 85025; 87635; 99285

== ENCOUNTER 2022-03-22 04:57 | Emergency (ER) | payer OTHER ==
--- NOTE | 2022-03-22 05:09 | ED ---
Psych HPI - General Source: patient, RN notes reviewed, old records reviewed Mode of arrival: ambulatory Limitations: no limitations - History of Present Illness MD Complaint: suicidal ideation, feels depressed -: unknown Associated Psychiatric Symptoms: depression, suicidal ideation History of same: Yes Quality: constant, getting worse Improves With: none Context: significant life stressor Associated Symptoms: denies other symptoms Treatments Prior to Arrival: placed on mental health hold If Self Harm: admits thoughts of self harm <Mono Bonilla - Last Filed: 03/22/22 06:13> <Rosalio Frost - Last Filed: 03/22/22 11:32> - General Chief Complaint: Psychiatric Symptoms Stated Complaint: Mental Health Time Seen by Provider: 03/22/22 05:09 - History of Present Illness Initial Comments: This is a 46-year-old male who is here for psychiatric illness. Patient states he needs help, patient is a poor historian secondary to likely intoxicated state suspect methamphetamine (Mono Bonilla) - Related Data Previous Rx's Medication Instructions Recorded FLUoxetine HCL [PROzac] 30 mg PO DAILY 30 Days cap 03/02/22 [place] Carbonate 300 mg PO BID 30 Days cap 03/02/22 Nicotine 14Mg/24Hr Patch [Habitrol] 1 patch TRANSDERM DAILY 30 Days 03/02/22 patch OLANZapine [ZyPREXA] 10 mg PO DAILY 30 Days tab 03/02/22 Allergies Allergy/AdvReac Type Severity Reaction Status Date / Time iodine Allergy Nausea & Verified 03/22/22 05:02 Vomiting seafood Allergy Unknown Uncoded 03/22/22 05:02 Review of Systems ROS Other: All systems not noted in ROS Statement are negative. <Mono Bonilla - Last Filed: 03/22/22 06:13> ROS Other: All systems not noted in ROS Statement are negative. <Rosalio Frost - Last Filed: 03/22/22 11:32> ROS Statement: Those systems with pertinent positive or pertinent negative responses have been documented in the HPI. Past Medical History Past Medical History: No Reported History Additional Past Medical History / Comment(s): kidney stones, previous meth and heroin, hepatitis B History of Any Multi-Drug Resistant Organisms: MRSA Date of last positivie culture/infection: 05/19/16 MDRO Source:: left leg Past Surgical History: Hernia Repair Additional Past Surgical History / Comment(s): lithotripsy Past Anesthesia/Blood Transfusion Reactions: No Reported Reaction Past Psychological History: No Psychological Hx Reported, Anxiety, PTSD Smoking Status: Current every day smoker Past Alcohol Use History: None Reported Past Drug Use History: Heroin, Marijuana, Methamphetamine <Mono Bonilla - Last Filed: 03/22/22 06:13> General Exam General appearance: alert, in no apparent distress, anxious Head exam: Present: atraumatic, normocephalic, normal inspection Eye exam: Present: normal appearance, PERRL, EOMI. Absent: scleral icterus, conjunctival injection, periorbital swelling ENT exam: Present: normal exam, mucous membranes moist Neck exam: Present: normal inspection. Absent: tenderness, meningismus, lymphadenopathy Respiratory exam: Present: normal lung sounds bilaterally. Absent: respiratory distress, wheezes, rales, rhonchi, stridor Cardiovascular Exam: Present: regular rate, normal rhythm, normal heart sounds. Absent: systolic murmur, diastolic murmur, rubs, gallop, clicks GI/Abdominal exam: Present: soft, normal bowel sounds. Absent: distended, tenderness, guarding, rebound, rigid Extremities exam: Present: normal inspection, full ROM, normal capillary refill. Absent: tenderness, pedal edema, joint swelling, calf tenderness Back exam: Present: normal inspection Neurological exam: Present: alert, oriented X3, CN II-XII intact Psychiatric exam: Present: normal affect, normal mood Skin exam: Present: warm, dry, intact, normal color. Absent: rash <Mono Bonilla - Last Filed: 03/22/22 06:13> Course <Mono Bonilla - Last Filed: 03/22/22 06:13> Vital Signs 03/22/22 03/22/22 04:59 08:00 Temperature 98.9 F Pulse Rate 99 96 Respiratory 19 18 Rate Blood Pressure 130/74 133/87 O2 Sat by Pulse 98 94 L Oximetry - Reevaluation(s) Reevaluation #1: 03/22/22 05:09 Medical record is reviewed 03/22/22 05:09 Medical clear for psychiatric evaluation (Mono Bonilla) Medical Decision Making <Rosalio Frost - Last Filed: 06/12/22 11:32> - Medical Decision Making Patient noted by EPS case discussed with psychiatrist recommends patient be discharged. Patient had 91 cells in his urine bili is asymptomatic. Urine culture was obtained (Rosalio Frost) - Lab Data Lab Results 03/22/22 Range/Units 05:29 Urine Color Yellow Urine Appearance Clear (Clear) Urine pH 5.5 (5.0-8.0) Ur Specific [place] 1.033 (1.001-1.035) Urine Protein 1+ H (Negative) Urine Glucose (UA) Negative (Negative) Urine Ketones 3+ H (Negative) Urine Blood Negative (Negative) Urine Nitrite Negative (Negative) Urine Bilirubin Negative (Negative) Urine Urobilinogen 6.0 (<2.0) mg/dL Ur Leukocyte Esterase Trace H (Negative) Urine WBC 19 H (0-5) /hpf Ur Squamous Epith Cells 1 (0-4) /hpf Urine Bacteria Rare H (None) /hpf Hyaline Casts 3 H (0-2) /lpf Urine Mucus Many H (None) /hpf Urine Opiates Screen Not Detected (NotDetected) Ur Oxycodone Screen Not Detected (NotDetected) Urine Methadone Screen Not Detected (NotDetected) Ur Propoxyphene Screen Not Detected (NotDetected) Ur Barbiturates Screen Not Detected (NotDetected) U Tricyclic Antidepress Not Detected (NotDetected) Ur Phencyclidine Scrn Not Detected (NotDetected) Ur Amphetamines Screen Detected H (NotDetected) U Methamphetamines Scrn Detected H (NotDetected) U Benzodiazepines Scrn Not Detected (NotDetected) Urine Cocaine Screen Not Detected (NotDetected) U Marijuana (THC) Screen Detected H (NotDetected) Disposition <Mono Bonilla - Last Filed: 03/22/22 06:13> Is patient prescribed a controlled substance at d/c from ED?: No Time of Disposition: 11:32 <Rosalio Frost - Last Filed: 03/22/22 11:32> Clinical Impression: Methamphetamine abuse, Depression Disposition: HOME SELF-CARE Condition: Stable Instructions (If sedation given, give patient instructions): Methamphetamine Abuse (ED) Additional Instructions: Please return to the Emergency Department if symptoms worsen or any other concerns. Referrals: Mariano Villa MD [Primary Care Provider] - 1-2 days
[2022-03-22 06:40] LABS: Appearance,Urine Clear (Clear); Bacteria,Urine Rare /hpf; Bilirubin,Urine Negative (Negative); Blood,Urine Negative (Negative); Color,Urine Yellow; Glucose,Urine (UA) Negative (Negative); Hyaline Casts,Urine 3 /lpf (0-2); Ketones,Urine 3+ (Negative); Leukocyte Esterase,Urine Trace (Negative); Mucus,Urine Many /hpf; Nitrite,Urine Negative (Negative); PH, Urine 5.5 (5.0-8.0); Protein,Urine 1+ (Negative); Specific Gravity,Urine 1.033 (1.001-1.035); Squamous Epithelial Cell,Urine 1 /hpf (0-4); WBC,Urine 19 /hpf (0-5)
[2022-03-22 06:45] LABS: Cocaine Screen,Urine Not Detected (NotDetected); Phencyclidine Screen,Urine Not Detected (NotDetected); Urn Cannabinoid Scrn Detected (NotDetected)
[2022-03-22 06:46] LABS: Amphetamine Screen,Urine Detected (NotDetected); Barbiturate Screen,Urine Not Detected (NotDetected); Benzodiazepines Screen,Urine Not Detected (NotDetected); Methadone Screen, Urine Not Detected (NotDetected); Opiate Screen,Urine Not Detected (NotDetected); Oxycodone Screen, Urine Not Detected (NotDetected); Tricyclic Antidepressant,Urine Not Detected (NotDetected)
[2022-03-22 12:13] VITALS: BP 109/79; PULSE 86; RESP 20; TEMP 98.3
== END 2022-03-22 12:14 | disposition home or self-care (01) ==
LOC: EC 04:57
DX: F15.10 Other stimulant abuse, uncomplicated (principal); F32.A Depression, unspecified; F17.200 Nicotine dependence, unspecified, uncomplicated; Z91.013 Allergy to seafood; Z91.041 Radiographic dye allergy status
CPT/HCPCS: 80306; 81001; 82075; 87086; 99284